=== PATIENT | female | born 2000 | race Caucasian/White ===

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

== ENCOUNTER 2022-05-13 21:58 | Observation (INO) | payer OTHER, SELFPAY ==
[2022-05-13 22:01] VITALS: BP 130/83; PULSE 84; RESP 18; TEMP 37.3; O2SAT 99; BMI 24.8
--- NOTE | 2022-05-13 22:19 | EKG12_ITS ---
Test Reason : DYSRHYTHMIA Blood Pressure : / mmHG Vent. Rate : 074 BPM Atrial Rate : 074 BPM P-R Int : 132 ms QRS Dur : 084 ms QT Int : 382 ms P-R-T Axes : 034 052 039 degrees QTc Int : 424 ms Normal sinus rhythm Normal ECG Confirmed by HUSEYIN CHAHAL, NIALL ([id number]), editor publications KALI FAITH ([id number]) on 05/16/2022 9:38:40 AM Referred By: CARLEE Confirmed By:NIALL FONTANEZ MD
--- NOTE | 2022-05-13 22:22 | EDS_ITS ---
HPI History of Present Illness Chief Complaint: Headache Informant: patient Onset/Context/Timing Onset: Today Narrative Narrative: Patient presents with speech difficulties followed by headache. She is a history of frequent migraines. She has never followed up with neurology. This evening she was sitting on the sofa watching TV with her mother when she suddenly developed difficulty speaking. She states it felt as if she knew what she went to say but could not get the words out. She felt like she had trouble controlling her arms and legs on both sides. EMS was called. Per her report when EMS arrived she still had symptoms but they improved in the ambulance. She now feels like her speech is completely back to normal. In the ambulance in route to the hospital she developed a left-sided migraine. [facility] Medical History Migraine Home Medications drospirenone 3 mg-ethinyl estradiol 0.02 mg tablet (MANSI (28)) 1 tab PO DAILY 05/13/22 [History Last Taken Unknown] Allergy/AdvReac Type Severity Reaction Status Date / Time amoxicillin Allergy Hives Verified 05/13/22 22:08 diphenhydramine Allergy Hives Verified 05/13/22 22:08 [From Benadryl] loratadine [From Claritin] Allergy Hives Verified 05/13/22 22:08 Surgical History History of tonsillectomy and adenoidectomy Social History Smoking Status: Current every day smoker tobacco type: e-cigarettes ROS ROS ED Constitutional Constitutional ED: Denies chills or fever(s) Eyes Eyes: Denies change in vision or discharge from eye(s) ENT ENT ED: Denies discharge from eye(s), rhinorrhea or sore throat Cardiovascular Cardiovascular: Denies chest pain or palpitations Respiratory/Chest Respiratory/Chest: Denies cough or dyspnea Gastrointestinal Gastrointestinal: Denies abdominal pain, diarrhea, nausea or vomiting Genitourinary Genitourinary ED: Denies dysuria Musculoskeletal Musculoskeletal: Denies back pain or extremity pain Integumentary Denies Abrasions or rash Neurologic Neurologic: Reports headache(s), weakness and other Details: Speech difficulty Psychiatric Psychiatric: Denies anxiety or depression Endocrine Endocrinology: Denies polydipsia or polyuria Allergic/Immunologic Allergic/Immunologic ED: Denies lip swelling or urticaria EXAM Physical Exam Const Vital Signs: 05/13/22 22:01 Temperature 99.1 F Temperature Source Temporal Pulse Rate 84 Respiratory Rate 18 Blood Pressure 130/83 H Blood Pressure Mean 98 Pulse Ox 99 Oxygen Delivery Method Room Air Positive well nourished and well developed General Appearance ED: well developed HEENT Reports normocephalic and head/scalp atraumatic Eyes PERRL and EOMs intact bilaterally Neck supple Chest Wall inspection of chest normal and palpation of chest normal Resp normal respiratory effort and clear to auscultation bilaterally Cardio regular rate and regular rhythm GI normal to inspection, nondistended, normoactive bowel sounds Palpation: soft Extremity normal to inspection Neuro oriented x3 and no sensory deficits noted Neuro Narrative: NIH equals 0 at the time of my initial exam. Sensorium / Orientation: alert Motor Exam: strength 5/5 throughout Psych mental status grossly normal Skin no rashes or lesions noted MDM MDM MDM Narrative Medical decision making narrative: Lab work obtained along with EKG and CTA of the head and neck. Lab Data Attestation: I reviewed the patient's lab results. Labs: Laboratory Results - last 24 hr 05/13/22 05/13/22 05/13/22 22:25 22:25 22:25 WBC 8.5 RBC 4.78 Hgb 13.9 Hct 41.1 MCV 86.0 MCH 29.1 MCHC 33.8 RDW Std Deviation 36.9 RDW Coeff of Mae 11.7 Plt Count 242 MPV 10.3 Immature Gran % (Auto) 0.100 Neut % (Auto) 52.5 Lymph % (Auto) 37.2 [place] % (Auto) 8.6 Eos % (Auto) 1.2 Baso % (Auto) 0.4 Absolute Neuts (auto) 4.4 Absolute Lymphs (auto) 3.14 Nucleated RBC % 0 Sodium 142 Potassium 3.7 Chloride 108 H Carbon Dioxide 28.0 Anion Gap 6 BUN 10 Creatinine 0.73 Estim Creat Clear Calc 132.93 Est GFR (MDRD) Af Amer 131 Est GFR (MDRD) Non-Af 108 BUN/Creatinine Ratio 13.8 Glucose 106 Calcium 9.1 Serum , Qual NEGATIVE Radiography Diagnostic Testing: Clinical Impression(s) from Imaging Studies Head/Neck CTA 05/13/22 22:27 IMPRESSION: Normal CTA Head and neck with contrast. Electronically Signed: Fredrick Garcia DO at 23:25 EDT , EKG Initial EKG: Attestation: I personally reviewed and interpreted this EKG as follows: Interpretation: Sinus Rhythm (Sinus at 74 with no acute ischemia.) Treatment and Re-Evaluation Narrative: CBC and chemistry studies unremarkable. test negative. CTA of the head and neck reveals no acute findings. Patient was ordered Toradol. On repeat evaluation she still complains of headache. She does have a documented allergy to Benadryl. In light of this she will be given a dose of steroids and Phenergan. I did explain to her that at this time my suspicion is that she has an atypical migraine is causing intermittent speech problems, however out of extreme caution I did recommend observation overnight and MRI to ensure no neurologic cause for her symptoms. Patient does have history of migraines and has never had speech problems like this previously. I will speak with hospitalist regarding observation. Discharge Plan Triage Chief Complaint: Headache Other Complaint: Confusion ED Provider: Sandy Corona Dx/Rx/DC Orders Clinical Impression: Migraine, Difficulty with speech Prescriptions: No Action drospirenone-ethinyl estradiol [MANSI (28)] 3-0.02 mg Tablet 1 tab PO DAILY Primary Care Provider: Jonathan Marshall Referrals: Care Physician,No Primary [Non-Staff] - Disposition Disposition: Acute Care Hospital [facility]
--- NOTE | 2022-05-13 22:27 | CT_ITS ---
STUDY: CTA HEAD AND NECK WITH CONTRAST REASON FOR EXAM: Female, 21 years old. speech difficulty, migraine RADIATION DOSAGE (If Supplied By Facility): CTDIvol = ( 27.55 ) mGy, DLP = ( 1351.81 ) mGycm TECHNIQUE: CT angiography was performed with a multi-detector CT scanner. Data acquisition was obtained from the skull base through the vertex following intravenous administration of IV 100mL Isovue-370. MIP images were reconstructed from the axial data set. Post-processing of the angiographic images was performed, with multiplanar reformation and 3D reconstruction. Individualized dose optimization techniques were used for this CT. COMPARISON: No relevant priors. FINDINGS: Normal bilateral petrous carotid arteries. Normal right cavernous carotid artery with a normal supraclinoid bifurcation. Normal left cavernous carotid artery with a normal supraclinoid bifurcation. Normal right A1 segments of the anterior cerebral artery. Normal left A1 segments of the anterior cerebral artery. Normal intact anterior communicating artery (ACOM). Normal bilateral A2 segments of the anterior cerebral arteries. Normal right M1 and M2 segments of the middle cerebral arteries, with a normal M1 bifurcation. Normal left M1 and M2 segments of the middle cerebral arteries, with a normal M1 bifurcation. Normal right posterior communicating artery (PCOM). Normal left posterior communicating artery (PCOM). Normal bilateral vertebral arteries. Normal basilar artery with a normal basilar bifurcation. The visualized bilateral superior cerebellar (SCA) arteries are normal. Normal bilateral P1, P2 and visualized P3 segments of the posterior cerebral arteries. There is no demonstrated aneurysm of the [place]. There is no demonstrated abnormality of the visualized brain. AORTIC ARCH: Normal visualized aortic arch. Normal origins of the brachiocephalic, left common carotid, and left subclavian arteries. RIGHT CAROTID ARTERIES: Normal right common carotid artery (CCA). Normal right common carotid bulb. Normal origin of the right internal carotid (ICA) artery without a hemodynamically significant stenosis. Normal visualized cervical portion of the right internal carotid artery. Normal origin of the right external carotid artery (ECA). LEFT CAROTID ARTERIES: Normal left common carotid artery (CCA). Normal left common carotid bulb. Normal origin of the left internal carotid (ICA) artery without a hemodynamically significant stenosis. Normal visualized cervical portion of the left internal carotid artery. Normal origin of the left external carotid artery (ECA). VERTEBRAL ARTERIES: There is enhancement within the bilateral vertebral arteries with a small left vertebral artery, and a dominant right vertebral artery. CT/CTA Head AND Neck W/ Contrast IMPRESSION: Normal CTA Head and neck with contrast. Electronically Signed: Fredrick Garcia DO at 23:25 EDT ,
[2022-05-13 22:32] LABS: Absolute Lymphocyte Count 3.14 X10^3/uL (0.83-4.51); Absolute Neutrophil Count 4.4 X10^3/uL (2.0-7.7); Basophil# 0.03 X10^3/uL; Basophil% 0.4 % (0-1); Eosinophils% 1.2 % (0-5); Hematocrit 41.1 % (37-47); Hemoglobin 13.9 g/dL (12.0-15.0); Lymphocyte # 3.14 X10^3/ul (0.83-4.51); Lymphocyte % 37.2 % (19-41); Mean Corp Hgb Conc 33.8 g/dL (32-36); Mean Corpuscular Hgb 29.1 pg (27.0-32.0); Mean Platelet Vol. 10.3 fl (6.2-12.0); Monocyte# 0.73 X10^3/uL; Monocyte% 8.6 % (0-10); NRBC Flagged by Analyzer 0 % (0-5); Neutrophil # 4.44 X10^3/uL (2.7-7.7); Neutrophil % 52.5 % (47-70); Platelet Count 242 K/mm3 (150-450); RBC Distribution Width CV 11.7 % (11.6-14.6); RBC Distribution Width SD 36.9 fl (35.1-43.9); Red Blood Count 4.78 M/mm3 (4.2-5.4); White Blood Count 8.5 K/mm3 (4.4-11.0)
[2022-05-13 22:41] LABS: Internal QC Validated? YES +Cl - CLEAR BKGD; Pregnancy, Serum, hCG Quali. NEGATIVE Negative
[2022-05-13 22:45] LABS: Anion Gap 6 (5-15); BUN 10 mg/dL (7-18); BUN/Creat Ratio 13.8 RATIO (10-20); Calcium,Total 9.1 mg/dL (8.5-10.1); Chloride 108 mmol/L (98-107); Creatinine, Serum 0.73 mg/dL (0.55-1.02); EST Glomerular Filtration Rate 108 mL/min (>60); Est Glom Filt Rate - Afr Amer 131 mL/min (>60); Estimated Creatinine Clearance 132.93 ml/min; Glucose 106 mg/dL (74-106); Potassium 3.7 mmol/L (3.5-5.1); Sodium Level 142 mmol/L (136-145)
[2022-05-13] MEDS: 0.9% Normal Saline 1,000 ML 1000 ML IV (23:46)
[2022-05-13] MEDS: Ketorolac 30 MG/ML Syringe IV (23:47)
[2022-05-14] VITALS (13 sets, daily range): BP systolic 102–128; BP diastolic 50–75; PULSE 62–89; RESP 13–18; TEMP 36.3–36.9; O2SAT 96–100; BMI 23.7
--- NOTE | 2022-05-14 00:14 | HP.PCM.HOS_ITS ---
HPI - General General Date of Admission: 05/14/22 Date of Service: 05/14/22 Chief Complaint: Aphasia HPI Narrative MOISES MALIK, is a 21 F with a significant history of tobacco abuse; and migraine who presents to the emergency department with aphasia that started about 45 minutes before presentation. Per patient's mother who was at the bedside patient was talking gibberish and she had difficulty producing her words. Also patient reports numbness in the fingers of her bilateral hands and in her feet. Also reportedly she was weak in bilateral hands as she could not squeeze paramedics hands. Reportedly patient's had dysmetria with [id number] tests on examination by paramedics. Patient reports improvement in his symptoms but then developed excruciating left sided migraine. Also she has left supraorbital pain. Reportedly had a migraine on presentation is the worst migraine she has ever had. Further, Patient's mother reports that patient's aphasia has improved but from time to time her aphasia returns. Reportedly every month patient has a migraine. There was plan to schedule an appointment to see a neurologist but that was never done. [facility] Medical History Migraine Home Medications drospirenone 3 mg-ethinyl estradiol 0.02 mg tablet (MANSI (28)) 1 tab PO DAILY 05/13/22 [History Last Taken Unknown] Allergy/AdvReac Type Severity Reaction Status Date / Time amoxicillin Allergy Hives Verified 05/13/22 22:08 diphenhydramine Allergy Hives Verified 05/13/22 22:08 [From Benadryl] loratadine [From Claritin] Allergy Hives Verified 05/13/22 22:08 Family History Other Cancer Diabetes Heart disease Surgical History History of tonsillectomy and adenoidectomy Social History Smoking Status: Current every day smoker tobacco type: e-cigarettes ROS ROS Narrative Pertinent positives and pertinent negatives as noted in HPI. All other systems were reviewed and are negative Vital Signs Vital Signs Vital Signs: 05/13/22 22:01 05/14/22 00:01 Temperature 99.1 F Temperature Source Temporal Pulse Rate 84 74 Respiratory Rate 18 13 Blood Pressure 130/83 H 113/74 Blood Pressure Mean 98 87 Pulse Ox 99 96 Oxygen Delivery Method Room Air Room Air Weight Weight: 78.5 kg Body Mass Index (BMI) 24.8 Physical Exam Narrative Physical exam: General: Well-nourished, well-developed. Head: Normocephalic, atraumatic, no tenderness Eyes: Vision is grossly intact. EOMI ENT, no trauma, moist mucous membranes, no rhinorrhea Neck: Nontender, full range of motion. CVS: Regular rate and rhythm. S1-S2 present. No murmur, gallop or rub. Respiratory : clear to auscultation bilaterally, chest wall nontender, no whe ezing Abdomen: Soft, nontender, nondistended, normal bowel sounds, no masses : Deferred Back: Nontender, no CVA tenderness, no midline spinal tenderness. Extremities: Nontender full range of motion, no trauma Skin: Normal color, no trauma, abrasions Neuro: Alert, oriented, cranial nerves II through XII grossly intact. No dysmetria with [id number] test or flores to heel test. Symmetrical weak power in all 4 extremities. Psychiatry: Normal mood. Normal affect. Not depressed. Not anxious. Results Lab / Micro Data Result Diagrams: 05/13/22 22:25 05/13/22 22:25 Labs: Laboratory Results - last 24 hr 05/13/22 22:25: WBC 8.5, RBC 4.78, Hgb 13.9, Hct 41.1, MCV 86.0, MCH 29.1, MCHC 33.8, RDW Std Deviation 36.9, RDW Coeff of Mae 11.7, Plt Count 242, MPV 10.3, Immature Gran % (Auto) 0.100, Neut % (Auto) 52.5, Lymph % (Auto) 37.2, Wolfe % (Auto) 8.6, Eos % (Auto) 1.2, Baso % (Auto) 0.4, Absolute Neuts (auto) 4.4, Absolute Lymphs (auto) 3.14, Nucleated RBC % 0 05/13/22 22:25: Sodium 142, Potassium 3.7, Chloride 108 H, Carbon Dioxide 28.0, Anion Gap 6, BUN 10, Creatinine 0.73, Estim Creat Clear Calc 132.93, Est GFR (MDRD) Af Amer 131, Est GFR (MDRD) Non-Af 108, BUN/Creatinine Ratio 13.8, Glucose 106, Calcium 9.1 05/13/22 22:25: Serum , Qual NEGATIVE Radiology Impression Head/Neck CTA 05/13/22 22:27 IMPRESSION: Normal CTA Head and neck with contrast. Electronically Signed: Fredrick Garcia DO at 23:25 EDT , Assessment & Plan Assessment/Plan (1) Migraine: (2) Difficulty with speech: PLAN: Plan Complex migraine With patient's history of no hypertension, diabetes, hyperlipidemia and patient's age doubt CVA. Will not initiate aspirin or statin at this time Serial NINDS NIH Scale ordered Impression of head CTA by radiology: Normal CTA Head and neck with contrast. Upon my personal head CT image review: I agree with radiologist interpretation Lab work reviewed showed negative . CBC with normal white count. Lipid profile and A1c ordered. Physical therapy, occupational therapy and speech therapy to work with patient. N.p.o. until bedside swallow eval. Permissive hypertension. Control blood pressure with labetalol for systolic blood pressure of more than 220 or diastolic blood pressure of more than 120. MRI of head ordered Toradol ordered. Tobacco abuse: Counseled. DVT prophylaxis: SCDs ordered Charges/Coding Visit Charges OBSV E&M: 82473 Initial observation care L2
[2022-05-14] MEDS: MethylPREDNISolone 125 MG/2 ML Vial IV (00:15)
[2022-05-14] MEDS: proMETHazine 25 MG Tablet PO (00:15)
--- NOTE | 2022-05-14 01:28 | MRI_ITS ---
STUDY: MRI BRAIN WITHOUT CONTRAST REASON FOR EXAM: Female, 21 years old. cva aphasia, coelho, numbness bilat hands and feet TECHNIQUE: Standardized multiplanar fat and water weighted pulse sequences were obtained. COMPARISON: None. FINDINGS: Normal size of the ventricles and extra-axial spaces for the patient''s age. Normal white matter tracts of the supratentorial brain. There is no evidence for recent intracranial ischemia or other cause of cytotoxic edema on diffusion weighted imaging (DWI). There are no demyelinating plagues of the supratentorial brain, brainstem or cerebellum. There are no findings suspicious for multiple sclerosis (MS). Normal T2* images of the brain without demonstrated susceptibility artifact. There is no demonstrated hemosiderin stain. No midline shift or hydrocephalus is present. Normal bilateral basal ganglia. Normal thalami. There is no extra-axial fluid accumulation. Normal flow voids within the major intracranial circulation suggesting patency by spin echo criteria. Normal sella turcica, pituitary gland, infundibular stalk, optic chiasm and hypothalamus. Normal tectal plate and pineal gland. Normal midbrain, manjula and medulla. Normal cerebellum. Normal basal cisterns. Normal bilateral temporal bones. Normal bilateral internal auditory canals. No demonstrated orbital abnormality, within the constraints of a routine brain study. Normal visualized paranasal sinuses. Normal calvarium and skull base. Normal visualized soft tissue structures. Normal visualized upper cervical spine. MRI/Brain without Contrast IMPRESSION: Normal unenhanced MRI of the brain. Electronically Signed: Jt Thapa MD at 11:38 EDT ,
[2022-05-14] MEDS: CLARIFY ORDER 1 EACH NOTE (05:29)
[2022-05-14 06:56] LABS: Cholesterol 185 mg/dL (200); High Density Lipoprotein 84 mg/dL; Triglycerides 39 mg/dL; Very Low Density Lipoprotein 8 mg/dL (5-40)
[2022-05-14 07:33] LABS: Hemoglobin A1c 4.9 % (3.8-5.6)
--- NOTE | 2022-05-14 08:07 | PCM.PN.HOSP ---
Subjective Subjective Still with headache. Atypical from her migraines as it is left sided. Has weakness in hands bilateraly. Objective Data Objective Data Vital Signs: Vital Signs Temp Pulse Resp BP Pulse Ox O2 Del Method 36.5 C L 67 18 107/62 99 Room Air 05/14/22 05:20 05/14/22 06:38 05/14/22 05:20 05/14/22 05:20 05/14/22 05:20 05/14/22 05:20 Oxygen Delivery Method Room Air Weight: 75.07 kg Body Mass Index (BMI) 23.7 Intake & Output: Intake and Output for Last 24 Hours 05/12/22 05/13/22 05/14/22 23:59 23:59 23:59 Intake Total 1150 / 1150 Balance 1150 / 1150 Lab / Micro Data Result Diagrams: 05/13/22 22:25 05/13/22 22:25 Labs: Laboratory Results - last 24 hr 05/13/22 22:25: WBC 8.5, RBC 4.78, Hgb 13.9, Hct 41.1, MCV 86.0, MCH 29.1, MCHC 33.8, RDW Std Deviation 36.9, RDW Coeff of Mae 11.7, Plt Count 242, MPV 10.3, Immature Gran % (Auto) 0.100, Neut % (Auto) 52.5, Lymph % (Auto) 37.2, [place]ter[place] % (Auto) 8.6, Eos % (Auto) 1.2, Baso % (Auto) 0.4, Absolute Neuts (auto) 4.4, Absolute Lymphs (auto) 3.14, Nucleated RBC % 0 05/13/22 22:25: Sodium 142, Potassium 3.7, Chloride 108 H, Carbon Dioxide 28.0, Anion Gap 6, BUN 10, Creatinine 0.73, Estim Creat Clear Calc 132.93, Est GFR (MDRD) Af Amer 131, Est GFR (MDRD) Non-Af 108, BUN/Creatinine Ratio 13.8, Glucose 106, Calcium 9.1 05/13/22 22:25: Serum , Qual NEGATIVE 05/14/22 05:30: Triglycerides 39, Cholesterol 185, LDL Cholesterol 93, VLDL Cholesterol 8, HDL Cholesterol 84 05/14/22 05:30: Hemoglobin A1c 4.9 Radiography Diagnostic Testing: Radiology Impression Head/Neck CTA 05/13/22 22:27 IMPRESSION: Normal CTA Head and neck with contrast. Electronically Signed: Fredrick Garcia DO at 23:25 EDT , Physical Exam Const alert and no apparent distress HEENT oropharynx normal and dentition normal Eyes EOMs intact bilaterally Resp normal respiratory effort, no retractions and no use of accessory muscles Neuro oriented x3, CN's II-XII intact bilaterally and moves all extremities Neuro Narrative: [employer] Worker strength is slightly less particular in her right hand. Altered sensation on right side of face compared to left. Sensation grossly intact throughout. Assessment & Plan Assessment/Plan (1) Migraine: PLAN: Complex migraine With patient's history of no hypertension, diabetes, hyperlipidemia and patient's age doubt CVA. Will not initiate aspirin or statin at this time Serial NINDS NIH Scale ordered Impression of head CTA by radiology: Normal CTA Head and neck with contrast. Lab work reviewed showed negative . CBC with normal white count. Lipid profile and A1c ordered. Physical therapy, occupational therapy and speech therapy to work with patient. N.p.o. until bedside swallow eval. Permissive hypertension. Control blood pressure with labetalol for systolic blood pressure of more than 220 or diastolic blood pressure of more than 120. MRI of head ordered Toradol ordered. Consult SOC (2) Difficulty with speech: PLAN: Plan Tobacco abuse: Counseled. DVT prophylaxis: SCDs ordered Charges/Coding Visit Charges OBSV E&M: 73654 Subsequent observation care L2
[2022-05-14] MEDS: 0.9% Saline Lock 10 ML Syringe IV (11:14)
[2022-05-14] MEDS: Ketorolac 15 MG/ML Vial IV (11:14)
--- NOTE | 2022-05-14 11:26 | TELEMED_ITS ---
[facility] Telemed has confirmed receipt of a request for visit. This document confirms receipt of the order initiating the consult. To find the results of the consultation, please view the patient's reports for the scanned Telemed Consult.
[2022-05-15] VITALS (9 sets, daily range): BP systolic 101–115; BP diastolic 45–69; PULSE 60–89; RESP 14–18; TEMP 36.6–37.1; O2SAT 98–100; BMI 23.7
--- NOTE | 2022-05-15 08:08 | PN.HOSP_ITS ---
Objective Data Objective Data Vital Signs: Vital Signs Temp Pulse Resp BP Pulse Ox O2 Del Method 36.8 C 67 14 108/45 L 100 Room Air 05/15/22 05:06 05/15/22 06:59 05/15/22 05:06 05/15/22 05:06 05/15/22 05:06 05/15/22 07:09 Oxygen Delivery Method Room Air Weight: 75.07 kg Body Mass Index (BMI) 23.7 Intake & Output: Intake and Output for Last 24 Hours 05/13/22 05/14/22 05/15/22 23:59 23:59 23:59 Intake Total 2049 Output Total 0 / 0 Balance 2049 0 / 0 Lab / Micro Data Result Diagrams: 05/13/22 22:25 05/13/22 22:25 Radiography Diagnostic Testing: Radiology Impression Brain MRI 05/14/22 01:28 IMPRESSION: Normal unenhanced MRI of the brain. Electronically Signed: Jt Thapa MD at 11:38 EDT Reading Location ID and State: [facility] / [place] , Service support , Assessment & Plan Assessment/Plan (1) Migraine: PLAN: Complex migraine With patient's history of no hypertension, diabetes, hyperlipidemia and patient's age doubt CVA. Will not initiate aspirin or statin at this time Serial NINDS NIH Scale ordered Impression of head CTA by radiology: Normal CTA Head and neck with contrast. Lab work reviewed showed negative . CBC with normal white count. Lipid profile and A1c ordered. Physical therapy, occupational therapy and speech therapy to work with patient. N.p.o. until bedside swallow eval. Permissive hypertension. Control blood pressure with labetalol for systolic blood pressure of more than 220 or diastolic blood pressure of more than 120. MRI of head negative Toradol ordered. Consult SOC Check MRV (2) Difficulty with speech: PLAN: Secondary to the primary issue. No evidence of stroke. PLAN: Plan Tobacco abuse: Counseled. DVT prophylaxis: SCDs ordered Charges/Coding Visit Charges OBSV E&M: 58943 Subsequent observation care L2
--- NOTE | 2022-05-15 13:00 | MRI_ITS ---
STUDY: EXAMINATION - MRV BRAIN WITHOUT CONTRAST REASON FOR EXAM: Female, 21 years old. Other, DIFFICULTY WITH SPEECH. LEFT-SIDED MIGRAINE HEADACHE. MR BRAIN 05/14/22; CTA HEAD AND NECK 05/13/22 TECHNIQUE: 3D [id number] (TOF) imaging was performed in a andrey MRI scanner. COMPARISON: CTA of the brain dated May 13, 2022. MRI of the brain dated May 14, 2022 FINDINGS: Normal flow within the superior sagittal sinus. Normal flow within the superficial cortical veins. Normal flow within the paired internal cerebral veins, vein of Rogers and straight sinus. There is preferential flow within the right transverse and sigmoid sinuses, however there is demonstrated minimal flow within the left transverse, but normal flow in the sigmoid sinus. This was also demonstrated on the CTA of the brain dated May 13, 2022. True venous sinus thrombosis is not favored, however if this remains a clinical concern a repeat exam with IV gadolinium can be performed which would result in opacification of the veins and reveal if a true thrombosis is present. Normal flow within the bilateral jugular bulbs. MRI/MRV Head Without Contrast IMPRESSION: 1. There is preferential flow within the right transverse and sigmoid sinuses, however there is demonstrated minimal flow within the left transverse, but normal flow in the sigmoid sinus. This was also demonstrated on the CTA of the brain dated May 13, 2022. 2. True venous sinus thrombosis is not favored, however if this remains a clinical concern a repeat exam with IV gadolinium can be performed which would result in opacification of the veins and reveal if a true thrombosis is present. 3. Normal remaining aspects of the exam. Electronically Signed: Jt Thapa MD at 14:31 EDT ,
--- NOTE | 2022-05-15 13:54 | MDS.RN ---
Called SOC to ask status and ETA of neuro consult as we are well outside of the 24 hour window. The representative personal service stated there is no current ETA due to the heavy call volume and they will call as soon as a doctor becomes available.
--- NOTE | 2022-05-15 16:11 | NURSING ---
Spoke with SOC at this time to inquire again about status of consult. After speaking with the dispatcher SOC rep stated that there is still no ETA for consult and requested we push images. I stated that we don't typically have to push images as SOC has access to our EMAR and usually retrieves images. Rep repeated her request for us to push images. Images have been pushed.
--- NOTE | 2022-05-15 18:11 | NURSING ---
this nurse called soc to see when consult might take place since it has been over 30 hours since order was placed. Lady put me on hold then had me take monitor in room for testing and next available will come on after testing per soc.
--- NOTE | 2022-05-15 20:28 | DCINST_ITS ---
Discharge Instructions Diet Discharge Diet: No restrictions Activity Discharge Activity: Return to Normal Activity Return to work on:: 05/16/22 Follow Up Care Please Follow Up With: Rosales Magana MD When: 1-3 DAYS Test Results: Test results from this visit will be discussed in further detail at your follow- up appointment, if applicable. Discharge Plan Admission Admit Date/Time: 05/14/22 00:14 Primary Reason for Your Visit: APHASIA Attending Provider: Bryant Friend Primary Care Provider: Jonathan Marshall Consulting Providers: Marquis Bejarano Discharge Orders/Prescriptions Prescriptions: New Eliquis DVT-PE Treat 30D Start 5 mg (74 tabs) tablets,dose pack 5 mg PO BID 30 Days Qty: 60 0RF Discontinued drospirenone-ethinyl estradiol [MANSI (28)] 3-0.02 mg Tablet 1 tab PO DAILY Referrals / Follow Up: Jonathan Marshall MD [Primary Care Provider] - Care Physician,No Primary [Non-Staff] - Disposition Disposition (needs filled in before D/C Order can be placed): Home, Self Care
--- NOTE | 2022-05-15 20:28 | DS.PCM_ITS ---
Providers Date of Admission: 05/14/22 Date of Discharge: 05/15/22 Primary Care Physician: Dr. Jonathan Marshall MD Reason For Visit: COMPLEX MIGRAINE Diagnosis Discharge Diagnosis (1) Migraine: Status: Acute Code(s): G43.909 - Migraine, unspecified, not intractable, without status migrainosus (2) Difficulty with speech: Status: Acute Code(s): R47.9 - Unspecified speech disturbances Plan Complex migraine With patient's history of no hypertension, diabetes, hyperlipidemia and patient's age doubt CVA. Will not initiate aspirin or statin at this time Serial NINDS NIH Scale ordered Impression of head CTA by radiology: Normal CTA Head and neck with contrast. Upon my personal head CT image review: I agree with radiologist interpretation Lab work reviewed showed negative . CBC with normal white count. Lipid profile and A1c ordered. Physical therapy, occupational therapy and speech therapy to work with patient. N.p.o. until bedside swallow eval. Permissive hypertension. Control blood pressure with labetalol for systolic blood pressure of more than 220 or diastolic blood pressure of more than 120. MRI of head ordered Toradol ordered. Tobacco abuse: Counseled. DVT prophylaxis: SCDs ordered Medications at Discharge Home Medications Eliquis DVT-PE Treat 30D Start (apixaban) 5 mg PO BID Venous sinus thrombosis 30 days #60 tabs 05/15/22 Hospital Course Summary of Care Provided Minutes Spent on Discharge: 35 Hospital Course: Assessment/Plan (1) Migraine: PLAN: Complex migraine With patient's history of no hypertension, diabetes, hyperlipidemia and patient's age doubt CVA.? Will not initiate aspirin or statin at this time Serial NINDS NIH Scale ordered Impression of head CTA by radiology:?Normal CTA Head and neck with contrast. Lab work reviewed showed negative .? CBC with normal white count. A1C returned as 4.9 Lipid profile showed TRI 39; cholesterol 185; LDL cholesterol 93; VLDL cholesterol 8; HDL cholesterol 84. Physical therapy, occupational therapy and speech therapy to work with patient.? N.p.o. until bedside swallow eval.Passed wallow eval Permissive hypertension.? Control blood pressure with labetalol for systolic blood pressure of more than 220 or diastolic blood pressure of more than 120. MRI of head negative Toradol ordered. Consult SOC; SOC MRI head normal MRV brain: 1.? There is preferential flow within the right transverse and sigmoid sinuses, however there is demonstrated minimal flow within the left transverse, but normal flow in the sigmoid sinus.? This was also demonstrated on the CTA of the brain dated May 13, 2022. 2.? True venous sinus thrombosis is not favored, however if this remains a clinical concern a repeat exam with IV gadolinium can be performed which would result in opacification of the veins and reveal if a true thrombosis is present. 3.? Normal remaining aspects of the exam. SOC Neurologist recommended CTvenogram of brain and EEG. CT venogram was not immediately available. Patient and mother requested that patient be discharged home and to follow-up with neurology and PCP. Patient's mother was adamant patient was seen at PCP about next day. Patient was advised to stop taking oral contraceptive pills and stopped smoking CT venogram was done and it returns negative. Patient was prescribed Eliquis. (2) Difficulty with speech: PLAN: Secondary to the primary issue.? No evidence of stroke. Resolved (3) Tobacco abuse: Counseled. Physical Exam Narrative Physical exam: General: Well-nourished, well-developed. Head: Normocephalic, atraumatic, no tenderness Eyes: Vision is grossly intact. EOMI ENT, no trauma, moist mucous membranes, no rhinorrhea Neck: Nontender, full range of motion, no spinal tenderness, deformities, step- off CVS: Regular rate and rhythm. S1-S2 present. No murmur, gallop or rub. Respiratory : clear to auscultation bilaterally, chest wall nontender, no wheezing Abdomen: Soft, nontender, nondistended, normal bowel sounds, no masses : Deferred Back: Nontender, no CVA tenderness, no midline spinal tenderness, deformities, step-offs Extremities: Nontender full range of motion, no trauma Skin: Normal color, no trauma, abrasions Neuro: Alert, oriented, cranial nerves II through XII grossly intact. Psychiatry: Normal mood. Normal affect. Not depressed. Not anxious. Weight / BMI Weight Weight: 75.07 kg Body Mass Index (BMI) 23.7 ABG / Lab / Microbiology Data Result Diagrams: 05/13/22 22:25 05/13/22 22:25 Radiography Diagnostic Testing: Radiology Impression Brain MRI 05/15/22 13:00 IMPRESSION: 1. There is preferential flow within the right transverse and sigmoid sinuses, however there is demonstrated minimal flow within the left transverse, but normal flow in the sigmoid sinus. This was also demonstrated on the CTA of the brain dated May 13, 2022. 2. True venous sinus thrombosis is not favored, however if this remains a clinical concern a repeat exam with IV gadolinium can be performed which would result in opacification of the veins and reveal if a true thrombosis is present. 3. Normal remaining aspects of the exam. Electronically Signed: Jt Thapa MD at 14:31 EDT Reading Location ID and State: [facility] / [place] , Service support , D/C Instructions Discharge Diet: No restrictions Return to work on: 05/20/22 May shower in (days): 0 May resume sexual activity in: No Restrictions Weight Bearing Status: Full weight bearing Call your doctor if you observe: Fever of 101 or Higher, Numbness or Tingling, Shortness of breath and Dizziness Please Follow Up With: Jonathan Marshall MD When: 1-3 days Meaningful Use Info Meaningful Use Diagnoses (Choose all that apply): None applicable Discharge Plan Admission Admit Date/Time: 05/14/22 00:14 Primary Reason for Your Visit: APHASIA Attending Provider: Bryant Friend Primary Care Provider: Jonathan Marshall Consulting Providers: Marquis Bejarano Discharge Orders/Prescriptions Prescriptions: New Eliquis DVT-PE Treat 30D Start 5 mg (74 tabs) tablets,dose pack 5 mg PO BID 30 Days Qty: 60 0RF Discontinued drospirenone-ethinyl estradiol [MANSI (28)] 3-0.02 mg Tablet 1 tab PO DAILY Referrals / Follow Up: Jonathan Marshall MD [Primary Care Provider] - Care Physician,No Primary [Non-Staff] - Disposition Disposition (needs filled in before D/C Order can be placed): Home, Self Care Charges/Coding Visit Charges Inpatient E&M: 78494 Disch Hosp
--- NOTE | 2022-05-16 07:34 | NURSING ---
at shift change 05/15 no neurologist on soc yet. certified legal secretary specialist did beam n at 1927 and verify patient
--- NOTE | 2022-05-16 12:56 | CASEMGMT ---
Call from pt's mother requesting Eliquis coupon cards. She states they were sent home with some yesterday but she lost them. Cards placed at [facility] main entrance for pt/mom to picker and sorter load and unload. Rani DIXON CM
== END 2022-05-15 21:40 | disposition home or self-care (01) ==
LOC: ED 05-14 00:04 → PCU 05-14 00:41
PROVIDERS: Admitting Provider Hospitalist; Emergency Provider Emergency Medicine; PCP Family Medicine
DX: G43.909 Migraine, unspecified, not intractable, without status migrainosus (principal); R47.01 Aphasia; R41.0 Disorientation, unspecified; R47.9 Unspecified speech disturbances; R53.1 Weakness; F17.290 Nicotine dependence, other tobacco product, uncomplicated
CPT/HCPCS: 36415; 70496; 70498; 70544; 70551; 80048; 80061; 83036; 84703; 85025; 92610; 93005; 96374; 96375; 96376; 99218; 99285; 99406; J7030; Q9967; A4216; G0378

== ENCOUNTER → 2023-01-30 | Outpatient (CLI) | payer SELFPAY ==
--- NOTE | 2023-01-30 16:19 | US_ITS ---
STUDY: FIRST TRIMESTER OBSTETRICAL ULTRASOUND REASON FOR EXAM: Female, 22 years old POSITIVE TEST LMP: 12/05/2022 TECHNIQUE: Transabdominal TECHNICAL QUALITY: Adequate. PRIOR ULTRASOUND: None. FINDINGS: There is visualization of a single gestational sac in a normal intrauterine position. The mean sac diameter (MSD) measures 2.7 cm, indicating an estimated gestational age (EGA) of 7 weeks, 5 days. The gestational sac shape is within normal limits. There is a visualized yolk sac. The yolk sac measures 4.4 mm. The placenta is non-visualized. There is visualization of a live embryo. The crown-rump length (CRL) measures 1.4 cm, indicating an estimated gestational age (EGA) of 7 weeks, 5 days. There is demonstrated cardiac activity with a heart rate of 150 bpm. The estimated gestation age (EGA) by LMP is 8 weeks, 0 days. The estimated date of delivery (FLORENTINO) by LMP is 09/11/2023. The estimated gestation age (EGA) by US is 7 weeks, 4 days. The estimated date of delivery (FLORENTINO) by US is 09/13/2023. The uterus measures 8.7 x 7.0 x 5.5 cm. There is no demonstrated uterine fibroid. The cervix is closed. The right ovary measures 2.9 x 1.9 x 1.3 cm. There is no right ovarian cyst. There is no visualized right adnexal mass or complex lesion. The left ovary measures 3.3 x 3.4 x 2.8 cm. There is a 2.7 cm cyst. There is no visualized left adnexal mass or complex lesion. There is no fluid in the cul de sac. US/Init OB < 14Wks US IMPRESSION: Normal single live intrauterine gestation with ultrasound EGA of 7 weeks 4 days. Electronically Signed: Bryce Alaniz MD at 19:38 EDT ,
== END | disposition home or self-care (01) ==
PROVIDERS: PCP Family Medicine; Referring Provider Nurse Practitioner Women's Health; Visit Provider Nurse Practitioner Women's Health
DX: Z32.01 Encounter for pregnancy test, result positive (principal)
CPT/HCPCS: 76801

== ENCOUNTER → 2023-02-06 | Outpatient (CLI) | payer OTHER, SELFPAY ==
[2023-02-09 20:07] LABS: Chlamydia By Nucleic Acid AMP Negative (Negative); Gonococcus By Nucleic Acid AMP Negative (Negative)
== END | disposition home or self-care (01) ==
LOC: LAB 10:46
PROVIDERS: PCP Family Medicine; Referring Provider Obstetrics & Gynecology; Visit Provider Obstetrics & Gynecology
DX: Z34.90 Encounter for supervision of normal pregnancy, unspecified, unspecified trimester (principal)
CPT/HCPCS: 87086; 87088; 87491; 87591

== ENCOUNTER → 2023-02-13 | Outpatient (CLI) | payer BC, SELFPAY ==
[2023-02-13 13:32] LABS: NATERA MAILED SPECIMEN
[2023-02-13 13:32] LABS: Absolute Lymphocyte Count 1.96 X10^3/uL (0.83-4.51); Absolute Neutrophil Count 7.7 X10^3/uL (2.0-7.7); Basophil# 0.04 X10^3/uL; Basophil% 0.4 % (0-1); Eosinophil# 0.08 X10^3/uL; Eosinophils% 0.8 % (0-5); Hematocrit 43.4 % (37-47); Hemoglobin 14.7 g/dL (12.0-15.0); Lymphocyte # 1.96 X10^3/ul (0.83-4.51); Lymphocyte % 18.7 % (19-41); Mean Corp Hgb Conc 33.9 g/dL (32-36); Mean Corpuscular Hgb 30.1 pg (27.0-32.0); Mean Corpuscular Volume 88.9 fL (81-99); Mean Platelet Vol. 10.3 fl (6.2-12.0); Monocyte# 0.65 X10^3/uL; Monocyte% 6.2 % (0-10); NRBC Flagged by Analyzer 0 % (0-5); Neutrophil # 7.73 X10^3/uL (2.7-7.7); Neutrophil % 73.5 % (47-70); Platelet Count 254 K/mm3 (150-450); RBC Distribution Width CV 12.3 % (11.6-14.6); Red Blood Count 4.88 M/mm3 (4.2-5.4); White Blood Count 10.5 K/mm3 (4.4-11.0)
[2023-02-13 15:03] LABS: HIV - WCH Non-Reactive (Nonreactive); Hepatitis B Surface Antigen Non-Reactive (Nonreactive); Hepatitis C Antibody Non-Reactive (Nonreactive); Rubella IgG Reactive (Nonreactive); Syphilis Antibodies Non-reactive
== END | disposition home or self-care (01) ==
PROVIDERS: PCP Family Medicine; Referring Provider Obstetrics & Gynecology; Visit Provider Obstetrics & Gynecology
DX: Z34.81 Encounter for supervision of other normal pregnancy, first trimester (principal)
CPT/HCPCS: 36415; 85025; 86703; 86762; 86780; 86803; 86850; 86900; 86901; 87340

== ENCOUNTER → 2023-04-17 | Outpatient (CLI) | payer BC, SELFPAY ==
--- NOTE | 2023-04-17 09:56 | US_ITS ---
STUDY: SECOND AND THIRD TRIMESTER OBSTETRICAL ULTRASOUND REASON FOR EXAM: Female, 22 years old OB Anatomy with cervical length LMP: December 05, 2022. TECHNIQUE: Transabdominal and Transvaginal TECHNICAL QUALITY: Adequate. PRIOR ULTRASOUND: Comparison is made with prior study dated January 30, 2023. FINDINGS: There is a single intrauterine fetus. The fetus is in a cephalic presentation. There is demonstrated cardiac activity with a heart rate of 139 bpm. There is a normal amniotic fluid volume. The largest amniotic fluid pocket measures 4.3 cm. The amniotic fluid index (MAMI) is within normal limits. The placenta is anterior in location and is not low lying. There are Grade 0 placental changes. The cervix measures 3.5 cm in length. The bilateral adnexal regions are normal. BIOMETRY: BPD: 4.38 cm: 19 weeks, 2 days HC: 15.62 cm: 18 weeks, 4 days AC: 13.73 cm: 19 weeks, 1 days FL: 2.88 cm: 18 weeks, 6 days CI: 81% FL/BPD: 66% FL/HC: FL/AC: 21% HC/AC: 1.14 age by current US: 18 weeks, 5 days. FLORENTINO by current US: September 13, 2023. Estimated weight: 271 grams, +/- 41 grams, 40 %. age by prior US: 18 weeks, 5 days. FLORENTINO by prior US: September 13, 2023. Age by LMP: 19 weeks, 0 days. FLORENTINO by LMP: September 11, 2023. ANATOMY: Gender: Female Cranium: Normal lateral ventricles. Normal choroid plexus. Normal cerebellum. Normal cisterna magna. Normal face, nose and lips. Chest: Normal 4-chamber heart. Abdomen/Pelvis: Normal diaphragm. Normal stomach. Normal abdominal wall. Normal cord insertion. Normal 3 vessel cord. Normal kidneys. Normal bladder. Spine: Normal cervical spine. Normal thoracic spine. Normal lumbar spine. Normal sacrum. Extremities: Normal bilateral upper extremities. Normal bilateral lower extremities. US/OB Anatomy w/ Transvaginal IMPRESSION: Single live intrauterine gestation with a mean gestational age of 18 weeks and 5 days. There has been good growth since prior study. Electronically Signed: Sammy Cuenca MD at 13:38 EDT ,
== END | disposition home or self-care (01) ==
LOC: OPUS 09:52
PROVIDERS: PCP Family Medicine; Referring Provider Obstetrics & Gynecology; Visit Provider Obstetrics & Gynecology
DX: O09.92 Supervision of high risk pregnancy, unspecified, second trimester (principal); Z3A.18 18 weeks gestation of pregnancy
CPT/HCPCS: 76805; 76817

== ENCOUNTER → 2023-06-12 | Outpatient (CLI) | payer BC, SELFPAY ==
[2023-06-12 13:06] LABS: Absolute Lymphocyte Count 2.14 X10^3/uL (0.83-4.51); Absolute Neutrophil Count 10.6 X10^3/uL (2.0-7.7); Basophil# 0.05 X10^3/uL; Basophil% 0.4 % (0-1); Eosinophil# 0.13 X10^3/uL; Eosinophils% 0.9 % (0-5); Hematocrit 38.5 % (37-47); Hemoglobin 12.4 g/dL (12.0-15.0); Lymphocyte # 2.14 X10^3/ul (0.83-4.51); Lymphocyte % 15.5 % (19-41); Mean Corp Hgb Conc 32.2 g/dL (32-36); Mean Platelet Vol. 10.5 fl (6.2-12.0); Monocyte# 0.72 X10^3/uL; Monocyte% 5.2 % (0-10); NRBC Flagged by Analyzer 0 % (0-5); Neutrophil # 10.59 X10^3/uL (2.7-7.7); Neutrophil % 76.8 % (47-70); Platelet Count 230 K/mm3 (150-450); RBC Distribution Width CV 12.4 % (11.6-14.6); Red Blood Count 4.14 M/mm3 (4.2-5.4); White Blood Count 13.8 K/mm3 (4.4-11.0)
[2023-06-12 13:26] LABS: Glucose Challenge Gest 1H 50g 102 mg/dL (70-140)
[2023-06-12 13:58] LABS: HIV - WCH Non-Reactive (Nonreactive); Syphilis Antibodies Non-reactive
== END | disposition home or self-care (01) ==
PROVIDERS: PCP Family Medicine; Referring Provider Registered Nurse; Visit Provider Registered Nurse
DX: O09.90 Supervision of high risk pregnancy, unspecified, unspecified trimester (principal); Z3A.00 Weeks of gestation of pregnancy not specified
CPT/HCPCS: 36415; 82950; 85025; 86703; 86780

== ENCOUNTER → 2023-07-17 | Outpatient (CLI) | payer BC, SELFPAY | END | disposition home or self-care (01) | LOC: LABSPEC 17:07 | PROVIDERS: PCP Family Medicine; Referring Provider Registered Nurse; Visit Provider Registered Nurse | DX: N89.8 Other specified noninflammatory disorders of vagina (principal) | CPT/HCPCS: 87070; 87205 ==

== ENCOUNTER → 2023-08-14 | Outpatient (CLI) | payer BC, SELFPAY | END | disposition home or self-care (01) | LOC: LABSPEC 17:00 | PROVIDERS: PCP Family Medicine; Referring Provider Obstetrics & Gynecology; Visit Provider Obstetrics & Gynecology | DX: O09.90 Supervision of high risk pregnancy, unspecified, unspecified trimester (principal); Z3A.00 Weeks of gestation of pregnancy not specified | CPT/HCPCS: 87081 ==

== ENCOUNTER 2023-09-05 20:43 | Inpatient (IN) | payer BC, SELFPAY ==
[2023-09-05] VITALS (19 sets, daily range): BP systolic 109–144; BP diastolic 57–96; PULSE 81–105; TEMP 37.1–37.6; O2SAT 97–100; BMI 31.2
--- OUTSIDE RECORDS SUMMARY | 2023-09-05 01:20 | XMS RPT_ITS | CCD ---
Author Name Unknown Address [address] [place] [address] Organization [facility] Care Team Providers Care Security Officer Name Role Phone Breann MOORE, [place] er CRISTINO CRAIN Attending Dilshad lable [facility] Unavai lable BRE[facility] Primary Care Unavarosana blakelyle SHEEBA MORGAN Attending SHEEBA Mills Referring Unavailable BREANN, [facility] Primary Care Unavai lable BREANN, [facility] Referring Unavai lable BREANN, [facility] Unavai lable BREANN, [facility] Referring Unavai lable BRE[facility] Primary Care SHEEBA Byers Attending SHEEBA Mills Referring Unavailable BREANN, [facility] Primary Care UnaANALY Cassidy Referring Unavailable BRE[facility] Primary Care Unavai lable JUSTSHEEBA Referring Unavailable Breann DO, [facility] er Allergies Allergy Classification Reported Allergen(s) Allergy Type Date of Onset Reaction(s) Facility (10 sources) Amoxicillin; Translations: [AMOXICILLIN] Drug Allergy 11-07-2016 Rash, Swelling [facility] Work Phone: (10 sources) diphenhydrAMINE; Translations: [DIPHENHYDRAMINE HCL] Drug Allergy 10-23-2009 [facility] (10 sources) Loratadine; Translations: [LORATADINE] Drug Allergy 10-23-2009 [facility] Medications Completed/Discontinued Medications Medication Drug Class(es) Dates Sig (Normalized) Sig (Original) adapalene 0.001 mg/mg / benzoyl peroxide 0.025 mg/mg topical gel (5 sources) Retinoid Start: 08-09-2018 End: 07-04-2022 adapalene-benzoyl peroxide (EPIDUO) 0.1-2.5 % glwp Apply 1 application to affected area once daily. 1 Bottle 2 08/09/2018 07/04/2022 Discontinued Problems Problem Classification Problem Date Documented Da te Episodic/Chronic Epilepsy; convulsions (4 sources) Seizure disorder; Translations: [Epilepsy, unspecified, not intractable, without status epilepticus] Onset: 06-03-2022 Chronic Headache; including migraine (1 source) Migraine with aura; Translations: [Migraine with aura, not intractable, without status migrainosus] Chronic Other nervous system disorders (1 source) Cerebral venous sinus thrombosis; Translations: [Intracranial and intraspinal phlebitis and thrombophlebitis] Episodic Other nervous system disorders (1 source) Intracranial and intraspinal phlebitis and thrombophlebitis; Translations: [Cerebral venous sinus thrombosis] Onset: 08-18-2022 Episodic Transient cerebral ischemia (4 sources) Transient cerebral ischemia; Translations: [Transient cerebral ischemic attack, unspecified] Onset: 06-03-2022 Chronic Results Test Name Value Interpretation Reference Range Facil ity Vital Signs Date Time Vital Sign Value Performing Clinician Jj aguilar 07-04-2022 13:10-0400 Body height 175.3 cm Sheeba Morgan MD Work Phone: [facility] 07-04-2022 13:10-0400 Body weight 72.58 kg Sheeba Morgan MD Work Phone: [facility] 07-04-2022 13:10-0400 Diastolic blood pressure 71 mm[Hg] Sheeba Morgan MD Work Phone: [facility] 07-04-2022 13:10-0400 Heart rate 86 /min Sheeba Morgan MD Work Phone: [facility] 07-04-2022 13:10-0400 SaO2% (BldA) [Mass fraction] 98 % Sheeba Morgan MD Work Phone: [facility] 07-04-2022 13:10-0400 Systolic blood pressure 112 mm[Hg] Sheeba Morgan MD Work Phone: [facility] 06-03-2022 11:26-0400 Body height 172.7 cm Cristino Crain DO Work Phone: [facility] 06-03-2022 11:26-0400 Body weight 74.39 kg Cristino Crain DO Work Phone: [facility] 06-03-2022 11:26-0400 Diastolic blood pressure 66 mm[Hg] Cristino Breann DO Work Phone: [facility] 06-03-2022 11:26-0400 Heart rate 86 /min Cristino Crain DO Work Phone: [facility] 06-03-2022 11:26-0400 SaO2% (BldA) [Mass fraction] 97 % Cristino Crain DO Work Phone: [facility] 06-03-2022 11:26-0400 Systolic blood pressure 100 mm[Hg] Cristino Crain DO Work Phone: [facility] 01-31-2020 00:23-0400 Body surface area Derived from formula [facility] [place] Encounters Encounter Date Encounter Type Care Provider Facility Start: 08-29-2022 End: 08-29-2022 ambulatory CRISTINO CRAIN Facility:[facility] Procedures Date Procedure Procedure Detail Performing Clinician Start: 06-25-2022 Ct angiography head w/contrast/noncontrast Tulsazaina Crain DO Work Phone: Plan of Treatment Date Care Activity Detail Author Start: 04-13-2024 Urine microalbumin profile DTAP,TDAP,TD (7 - Td or Tdap) [facility] Start: 08-31-2022 DEPRESSION ASSESSMENT DEPRESSION ASSESSMENT [facility] Start: 05-01-2022 Influenza vaccination INFLUENZA (#1) [facility] Start: 08-31-2021 DEPRESSION ASSESSMENT DEPRESSION ASSESSMENT [facility] Start: 07-19-2021 COVID-19 VACCINE (3 - Booster for Moderna series) COVID-19 VACCINE (3 - Booster for Moderna series) [facility] Start: 12-06-2019 CHLAMYDIA SCREENING (18-24) CHLAMYDIA SCREENING (18-24) [facility] Start: 12-06-2019 GC (GONORRHEA) SCREENING (18-24) GC (GONORRHEA) SCREENING (18-24) [facility] Start: 12-06-2019 HEPATITIS C SCREENING HEPATITIS C SCREENING [facility] Start: 12-06-2019 HIV SCREENING HIV SCREENING [facility] Start: 12-06-2015 PEDS TO ADULT TRANSITION ANNUAL ASSESSMENT PEDS TO ADULT TRANSITION ANNUAL ASSESSMENT [facility] Start: 2013 PEDS TO ADULT TRANSITION INITIAL DISCUSSION PEDS TO ADULT TRANSITION INITIAL DISCUSSION [facility] Start: 12-06-2011 MENINGOCOCCAL B: Consider based on risk (1 of 2 - Risk Bexsero 2-dose series) MENINGOCOCCAL B: Consider based on risk (1 of 2 - Risk Bexsero 2-dose series) [facility] Start: 06-06-2002 COVID-19 VACCINE (#1) COVID-19 VACCINE (#1) [facility] End: 07-03-2023 CTA HEAD W IVCON CTA HEAD W IVCON Radiology Routine TIA (transient ischemic attack) Seizure disorder (HCC) 1 Occurrences starting 06/03/2022 until 07/03/2023 [facility] Work Phone: Immunizations Immunization Date Immunization Notes Care Provider Rachelle silva 09-25-2015 Human Papillomavirus 9-valent vaccine [place] [facility] DO Work Phone: [facility] 09-25-2015 influenza, live, intranasal, quadrivalent [facility] 04-16-2015 human papilloma viru s vaccine, quadrivalent [facility] 07-20-2014 influenza, live, intranasal, quadrivalent Cristino Breann DO Work Phone: [facility] 04-13-2014 meningococcal polysaccharide (groups A, C, Y and W-135) diphtheria toxoid conjugate vaccine (MCV4P) [facility] 04-13-2014 tetanus toxoid, redu binh diphtheria toxoid, and acellular pertussis vaccine, adsorbed [facility] 06-11-2013 influenza virus vacc ine, live, attenuated, for intranasal use Cirstino Breann DO Work Phone: [facility] Work Phone: 07-08-2012 influenza virus vacc ine, live, attenuated, for intranasal use [place] Bre[place] DO Work Phone: [facility] 05-31-2011 influenza virus vacc ine, live, attenuated, for intranasal use [place] Bre[place] DO Work Phone: [facility] Work Phone: 06-02-2009 influenza virus vacc ine, live, attenuated, for intranasal use Cristino Breann DO Work Phone: [facility] Work Phone: 08-11-2007 influenza virus vacc ine, live, attenuated, for intranasal use [place] [facility] DO Work Phone: [facility] Work Phone: 10-20-2006 diphtheria, tetanus toxoids and acellular pertussis vaccine Cristino Breann DO Work Phone: [facility] Work Phone: 10-20-2006 measles, mumps, rube lla, and varicella virus vaccine [place] Bre[place] DO Work Phone: [facility] Work Phone: 10-20-2006 poliovirus vaccine, inactivated [place] Bre[place] DO Work Phone: [facility] Work Phone: 07-17-2003 influenza virus vacc ine, unspecified formulation [place] Bre[place] DO Work Phone: [facility] Work Phone: 06-22-2003 influenza virus vacc ine, unspecified formulation Cristino Breann DO Work Phone: [facility] Work Phone: 03-08-2003 diphtheria, tetanus toxoids and acellular pertussis vaccine Cristino Breann DO Work Phone: [facility] Work Phone: 03-08-2003 pneumococcal conjuga te vaccine, 7 valent [facility] Work Phone: 03-08-2003 varicella virus vaccine Free [facility] DO Work Phone: [facility] Work Phone: 12-07-2002 haemophilus influenz ae type b vaccine, HbOC conjugate [facility] DO Work Phone: [facility] Work Phone: 12-07-2002 measles, mumps and rubella virus vaccine [facility] Work [facility]: [facility] Work Phone: 09-07-2002 hepatitis B vaccine, pediatric or pediatric/adolescent dosage [facility] DO Work Phone: [facility] Work Phone: 09-07-2002 pneumococcal conjuga te vaccine, 7 valent [facility] Work Phone: 06-06-2002 diphtheria, tetanus toxoids and acellular pertussis vaccine [facility] Work [facility]: [facility] Work Phone: 06-06-2002 haemophilus influenz ae type b vaccine, HbOC conjugate [facility] DO Work Phone: [facility] Work Phone: 06-06-2002 pneumococcal conjuga te vaccine, 7 valent [facility] Work [facility]: [facility] Work Phone: 06-06-2002 poliovirus vaccine, inactivated [facility] DO Work Phone: [facility] Work Phone: 04-06-2002 diphtheria, tetanus toxoids and acellular pertussis vaccine [facility] Work [facility]: [facility] Work Phone: 04-06-2002 haemophilus influenz ae type b vaccine, HbOC conjugate [facility] Work Phone: 04-06-2002 poliovirus vaccine, inactivated Cristino Breann DO Work Phone: [facility] Work Phone: 02-09-2002 diphtheria, tetanus toxoids and acellular pertussis vaccine [facility] Work Phone: [facility] Work Phone: 02-09-2002 haemophilus influenz ae type b vaccine, HbOC conjugate [facility] Work Phone: [facility] Work Phone: 02-09-2002 pneumococcal conjuga te vaccine, 7 valent [facility] DO Work Phone: [facility] Work Phone: 02-09-2002 poliovirus vaccine, inactivated Cristino Breann DO Work Phone: [facility] Work Phone: 01-06-2002 hepatitis B vaccine, pediatric or pediatric/adolescent dosage [place] [facility] DO Work Phone: [facility] Work Phone: 2001 hepatitis B vaccine, pediatric or pediatric/adolescent dosage [place] Bre[place] DO Work Phone: [facility] Work Phone: Payers Date Payer Category Payer [employer] [id number] 2021 [employer] [id number] 2021 Unknown [id number] Social History Date Type Detail Facility Start: 12-03-2017 End: 07-04-2022 Tobacco smoking status AKIS Never smoked tobacco [facility] Work Phone: History of tobacco use Passive smoker [facility] Work Phone: Start: 12-03-2017 Tobacco use and exposure User of smokeless tobacco [facility] Work Phone: History of tobacco use [facility] Work Phone: Start: 09-29-2019 Alcohol intake Not Asked [facility] Start: 2001 Sex Assigned At Not on file C [facility] Start: 05-24-2022 End: 06-05-2022 Exposure to SARS-CoV-2 (event) Not sure [facility] Start: 07-04-2022 Tobacco use and exposure Smokeless tobacco non-user [facility] Start: 07-04-2022 End: 08-18-2022 Alcohol intake Ex-drinker (finding) [facility] Clinical Notes 06-03-2022 to 08-29-2022 Sheeba Morgan MD - 08/29/2022 2:57 PM ESTSheeba Morgan MD - 07/04/2022 3:05 PM EDTTelephone Encounter - Karissa Draper LPN - 07/03/2022 10:16 AM EDTAngela Vale RN - 06/25/2022 11:00 AM EDT Note Date & Type Note Facility 08-29-2022 Note HNO ID: [id number] Author: Sheeba Morgan MD Service: ? Author Type: Physician Type: Progress Notes Filed: 08/29/2022 3:11 PM Note Text: [facility] Follow Up / Established Virtual Visit I received consent from the patient to perform the visit as a virtual encounter. Individuals who were included in, or assisted with the encounter were: Sheeba Morgan MD Primary Care Provider: Cristino Crain DO Chief Complaint: follow up Chart Review: Patient first seen in July for an episode in May with sudden onset word-finding difficulties, expressive aphasia. An MR head without contrast venogram showed possible left transverse sinus thrombosis due to minimal flow. Subsequently MRI was done but for unclear reasons was done without contrast venogram. MRI was then repeated with contrast. 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 I spoke with the patient on August 18 via [employer] and told her to stop taking her Eliquis. HPI: Susie has been doing well. She does not report any further episodes. 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 It is more likely that the episode was a complex migraine. We discussed that while there is a theoretical increased risk of strokes in patients with migraine with aura, the fact that she is only had 1 occurrence of this headache means that her risk is likely minimal when weighed against the thrombosis risk of . There is no problem list on file for this patient. PAST MEDICAL HISTORY Diagnosis Date NEGATIVE MEDICAL HISTORY Medications: Reviewed Current Outpatient Medications Medication Instructions apixaban (ELIQUIS) 5 mg, ORAL, 2 TIMES DAILY iv contrast (will be provided with radiology test) MRV Brain Inject, intravenously, once for 1 dose. No IV access, insert saline lock prior to the beginning of sedation, infusion, injection of imaging exam. Discontinue saline lock post exam. If Pt. has a central line or IVAD, may access for administration according to line specific nursing protocol. Once exam is complete flush line and de-access according to line specific nursing protocol in the MR contrast administration guidelines link. iv contrast (will be provided with radiology test) MRV Brain Inject, intravenously, once for 1 dose. No IV access, insert saline lock prior to the beginning of sedation, infusion, injection of imaging exam. Discontinue saline lock post exam. If Pt. has a central line or IVAD, may access for administration according to line specific nursing protocol. Once exam is complete flush line and de-access according to line specific nursing protocol in the MR contrast administration guidelines link. THERAPEUTIC MULTIVITAMIN TAB Take one(1) tablet daily. ALLERGIES No Known Allergies Family History Problem Relation Age of Onset other (history unknown) Mother adopted PAST SURGICAL HISTORY Procedure Laterality Date NONE Social Hx: Social History Tobacco Use Smoking status: Never Passive exposure: Yes Smokeless tobacco: Never Vaping Use Vaping Use: Some days Substances: Nicotine Devices: Disposable Substance Use Topics Alcohol use: Not Currently EXAMINATION Vitals deferred, virtual visit Fluent speech. No facial asymmetry. Labs: No results found for: HB, HCT, WBC, PLT 4.7 (09/29/2019) Radiology: MRV BRAIN WO/W IVCON Narrative: * * *Final Report* * * DATE OF EXAM: Aug 18 2022 9:39AM [facility] 0336 - MRV BRAIN WO/W IVCON / PROCEDURE REASON: Cerebral venous sinus thrombosis * * * * Physician Interpretation * * * * EXAMINATION: MRV BRAIN WO/W IVCON HISTORY: Cerebral venous sinus thrombosis TECHNIQUE: Intracranial 2-D [id number] and post gadolinium 3-D MR venography. Contrast: IV administration of 15 ml of Dotarem COMPARISON: Brain MRI 07/14/2022, head CTA 06/25/2022 RESULT: The superior sagittal, straight, transverse and sigmoid sinuses are patent without filling defect. 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 The internal cerebral veins and vein of Rogers are patent. The superior ophthalmic veins are not enlarged. The cavernous sinuses appear grossly symmetric. Single sagittal precontrast T1 acquisition through the brain is not revealing of any acute intracranial process including mass effect or obvious large space-occupying lesion. Impression: IMPRESSION: Unremarkable intracranial MRV. No dural venous sinus thrombosis. Paint Grinder: CAMERON Transcribe Date/Time: Aug 18 2022 9:56A Dictated by : STEFANIE WALSH DO This examination was interpreted and the report reviewed and electronically signed by: STEFANIE WALSH DO on Aug 18 2022 10:03AM EST Assessment/Plan: Chart, labs,and relevant images reviewed. (more content not included)... [facility] 08-29-2022 History of Presen t illness Narrative Images from the original note were not included. [facility] Follow Up / Established Virtual Visit I received consent from the patient to perform the visit as a virtual encounter. Individuals who were included in, or assisted with the encounter were: Sheeba Morgan MD Primary Care Provider: Cristino Crain DO Chief Complaint: follow up Chart Review: Patient first seen in July for an episode in May with sudden onset word-finding difficulties, expressive aphasia. An MR head without contrast venogram showed possible left transverse sinus thrombosis due to minimal flow. Subsequently MRI was done but for unclear reasons was done without contrast venogram. MRI was then repeated with contrast. 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 I spoke with the patient on August 18 via [employer] and told her to stop taking her Eliquis. HPI: Susie has been doing well. She does not report any further episodes. 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 It is more likely that the episode was a complex migraine. We discussed that while there is a theoretical increased risk of strokes in patients with migraine with aura, the fact that she is only had 1 occurrence of this headache means that her risk is likely minimal when weighed against the thrombosis risk of . There is no problem list on file for this patient. PAST MEDICAL HISTORY Diagnosis Date NEGATIVE MEDICAL HISTORY Medications: Reviewed Current Outpatient Medications Medication Instructions apixaban (ELIQUIS) 5 mg, ORAL, 2 TIMES DAILY iv contrast (will be provided with radiology test) MRV Brain Inject, intravenously, once for 1 dose. No IV access, insert saline lock prior to the beginning of sedation, infusion, injection of imaging exam. Discontinue saline lock post exam. If Pt. has a central line or IVAD, may access for administration according to line specific nursing protocol. Once exam is complete flush line and de-access according to line specific nursing protocol in the MR contrast administration guidelines link. iv contrast (will be provided with radiology test) MRV Brain Inject, intravenously, once for 1 dose. No IV access, insert saline lock prior to the beginning of sedation, infusion, injection of imaging exam. Discontinue saline lock post exam. If Pt. has a central line or IVAD, may access for administration according to line specific nursing protocol. Once exam is complete flush line and de-access according to line specific nursing protocol in the MR contrast administration guidelines link. THERAPEUTIC MULTIVITAMIN TAB Take one(1) tablet daily. ALLERGIES No Known Allergies Family History Problem Relation Age of Onset other (history unknown) Mother adopted PAST SURGICAL HISTORY Procedure Laterality Date NONE Social Hx: Social History Tobacco Use Smoking status: Never Passive exposure: Yes Smokeless tobacco: Never Vaping Use Vaping Use: Some days Substances: Nicotine Devices: Disposable Substance Use Topics Alcohol use: Not Currently EXAMINATION Vitals deferred, virtual visit Fluent speech. No facial asymmetry. Labs: No results found for: HB, HCT, WBC, PLT 4.7 (09/29/2019) Radiology: MRV BRAIN WO/W IVCON Narrative: * * *Final Report* * * DATE OF EXAM: Aug 18 2022 9:39AM [facility] 0336 - MRV BRAIN WO/W IVCON / PROCEDURE REASON: Cerebral venous sinus thrombosis * * * * Physician Interpretation * * * * EXAMINATION: MRV BRAIN WO/W IVCON HISTORY: Cerebral venous sinus thrombosis TECHNIQUE: Intracranial 2-D [id number] and post gadolinium 3-D MR venography. Contrast: IV administration of 15 ml of Dotarem COMPARISON: Brain MRI 07/14/2022, head CTA 06/25/2022 RESULT: The superior sagittal, straight, transverse and sigmoid sinuses are patent without filling defect. 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 The internal cerebral veins and vein of Rogers are patent. The superior ophthalmic veins are not enlarged. The cavernous sinuses appear grossly symmetric. Single sagittal precontrast T1 acquisition through the brain is not revealing of any acute intracranial process including mass effect or obvious large space-occupying lesion. Impression: IMPRESSION: Unremarkable intracranial MRV. No dural venous sinus thrombosis. Paint Grinder: CAMERON Transcribe Date/Time: Aug 18 2022 9:56A Dictated by : STEFANIE WALSH DO This examination was interpreted and the report reviewed and electronically signed by: STEFANIE WALSH DO on Aug 18 2022 10:03AM EST Assessment/Plan: Chart, labs,and relevant images reviewed. The encounter diagnosis was Migraine with aura and without status migrainosus, not intractable. Repeat MRV with gadolinium very reassuring no evidence of venous sinus fibrosis. Event was likely migraine with complex aura. Patient has stopped her apixaban as instructed We discussed that while there is a theoretical increased risk of strokes in patients with migraine with aura, the fact that she is only had 1 occurrence of this headache means that her risk is likely minimal when weighed against the thrombosis risk of , so going back on OCP if she would like to is reasonable. Follow-up as needed This note was dictated using [employer] speech recognition software and may contain some errors that were a result of the program not accurately transcribing what was dictated, despite efforts to make corrections. PROMIS (Patient-Reported Outcomes Measurement Information System) is a set of person-centered measures that evaluates and monitors physical, social, and emotional health. It can be used with the general population and with individuals living with chronic conditions. PROMIS 10: PHYSICAL AND MENTAL HEALTH: I spent a total of 8 minutes on the date of the service which included preparing to see the patient, [id number] patient care, completing clinical documentation, obtaining and/or reviewing separately obtained history, performing a medically appropriate examination, counseling and educating the patient/family/caregiver and ordering medications, tests, or procedures. . Sheeba Morgan MD documented in this encounter [facility] 08-18-2022 Note HNO ID: [id number] Author: RT Chinyere(R) Service: Radiology Author Type: Car Worker Helper Type: Progress Notes Filed: 08/18/2022 9:26 AM Note Text: Radiology Service Progress Note PATIENT NAME: Ernestina Delong DATE OF SERVICE: August 18, 2022 TIME: 9:25 AM PATIENT IDENTITY VERIFICATION COMPLETED USING TWO (2) IDENTIFIERS: Name and Date of confirmed by patient verbally. FALL SCREENING: Has the patient had 2 falls in the last year or 1 fall with injury or currently using an Ambulatory Assistive Device (Walker, Cane, Wheelchair, Crutches, etc.)? No PATIENT GENDER DATA: Female. status: : No status: NO. PATIENT RELEVANT IMPLANT DATA REVIEWED: Yes RADIOLOGY DEPARTMENT: MR; Exam(s) Completed: Head: Sagittal Sinus MRV PERIPHERAL IV DATA: Site assessment: Clean,Dry and Intact, Site disposition Discontinued SIGNED BY: RT Chinyere(R) August 18, 2022 9:25 AM [facility] 08-18-2022 Note HNO ID: [id number] Author: Joelle Roach RN Service: Nursing Author Type: Registered Nurse Type: Progress Notes Filed: 08/18/2022 9:09 AM Note Text: Radiology Service Progress Note DATE OF SERVICE: August 18, 2022 TIME: 8:58 AM PATIENT WEIGHT: 160 LBS PATIENT IDENTITY VERIFICATION COMPLETED USING TWO (2) STANDARD IDENTIFIERS: .Name and Date of confirmed by patient verbally FALL SCREENING: Has the patient had 2 falls in the last year or 1 fall with injury or currently using an Ambulatory Assistive Device (Walker, Cane, Wheelchair, Crutches, etc.)? No PATIENT GENDER DATA: Female. status: : No status: NO. ALLERGIES: Reviewed and unchanged CONTRAST ALLERGY: No EXAM: MRI - CONTRAST TYPE: GROUP II IV SITE: Ambulatory: A peripheral IV was started in the Left antecubital site with a Angio cath: 22 gauge. and A Saline lock was inserted per protocol IV SITE APPEARANCE: Clean,Dry and Intact SIGNATURE: Joelle Roach RN PATIENT NAME: Ernestina Delong DATE: August 18, 2022 TIME: 8:58 AM [facility] 07-14-2022 Note HNO ID: [id number] Author: Jen Jiménez, gang supervisor pipe lines Service: ? Author Type: Car Worker Helper Type: Progress Notes Filed: 07/14/2022 1:29 PM Note Text: Radiology Service Progress Note PATIENT NAME: Ernestina Delong DATE OF SERVICE: July 14, 2022 TIME: 1:21 PM PATIENT IDENTITY VERIFICATION COMPLETED USING TWO (2) IDENTIFIERS: Name and Date of confirmed by patient verbally. FALL SCREENING: Has the patient had 2 falls in the last year or 1 fall with injury or currently using an Ambulatory Assistive Device (Walker, Cane, Wheelchair, Crutches, etc.)? No PATIENT GENDER DATA: Female. status: : No status: NO. PATIENT RELEVANT IMPLANT DATA REVIEWED: Yes RADIOLOGY DEPARTMENT: MR; Exam(s) Completed: Head: Routine Brain PERIPHERAL IV DATA: Not applicable SIGNED BY: Jen JIMÉNEZ RT, gang supervisor pipe lines July 14, 2022 1:21 PM [facility] 07-04-2022 Note HNO ID: [id number] Author: Sheeba Morgan MD Service: ? Author Type: Physician Type: Progress Notes Filed: 07/07/2022 8:44 AM Note Text: [facility] Name: Ernestina Delong Age: [age] year old Gender: female Primary Care Provider: Cristino Crain, DO Consult requested for ?stroke by Dr. Cristino Crain. Recommendations will be communicated via shared medical record or US mail. Chief Complaint:New Patient HPI: This very pleasant 21-year-old woman presents today with her to clinic. She had an episode on May 14 in which she was sitting on the couch and began to have trouble finding her words. She texted her that she felt like she was having a stroke. I reviewed the text. It had poor syntax and was slightly rambling. Spelling was mostly correct. She called a family member who is an EMT and an ambulance was called. She was taken to [facility]. She had an MR head with out contrast with MR venogram. There was minimal flow in the left transverse sinus with normal flow in the sigmoid sinus. Flow was normal in the remainder of the sinuses. Note that the patient did not have any occipital type findings such as homonymous hemianopsia. Patient was told to stop combined contraceptive pill and stop smoking cigarettes. Patient was also told not to drive. Patient eventually was started on Eliquis 5 mg twice daily. I do not see that a hypercoagulable profile was done. She then got a headache in the hospital which was slightly more severe than her usual headache. Patient reports that she had some numbness and tingling in all 4 limbs. She also felt like her right hand may have been weaker compared to her left but this is now resolved. She is also having some short-term memory issues and some rare word finding difficulties. She also reported being jumpy or easier to startle. She has had no double vision. She does get regular headaches that nearly always resolve with sleep, are bifrontal or bioccipital, not throbbing, no photophobia or photophobia but she prefers to rest. She does not have a personal or family history of multiple miscarriages, she does not have any recent or family history of autoimmune disease or other clots. She does report however that her mom is adopted Unfortunately MR images were not available to review today. There is no problem list on file for this patient. PAST MEDICAL HISTORY Diagnosis Date NEGATIVE MEDICAL HISTORY Medications: Reviewed Current Outpatient Medications on File Prior to Visit Medication Sig THERAPEUTIC MULTIVITAMIN TAB Take one(1) tablet daily. No current facility-administered medications on file prior to visit. ALLERGIES Allergen Reactions Amoxicillin Rash, Swelling Benadryl [Diphenhyd* Increased allergy symptoms. Claritin [Loratadin* Increased allergy symptoms FAMILY HISTORY Problem Relation Age of Onset other (history unknown) Mother adopted PAST SURGICAL HISTORY Procedure Laterality Date NONE SOCIAL HISTORY No social history on file. Tobacco Use: Medium Risk Smoking Tobacco Use: Never Smokeless Tobacco Use: Never Passive Exposure: Yes PHYSICAL EXAM 07/04/22 1310 BP: 112/71 Pulse: 86 Neurologic Exam Cognitive and Language: Alert and answered questions appropriately. Language was fluent including repetition and naming. Followed simple and complex commands. Cranial Nerves: Visual rangel were full tested binocularly to finger counting in all 4 quadrants with no visual extinction. Pupils were equal and both reactive to light. Extraocular movements were full with no diplopia or nystagmus. Facial sensation was normal to light touch in V1 to V3. Facial strength was symmetric. Normal hearing grossly bilaterally. Palatal raise was symmetric. Shoulder shrug was symmetric. Tongue protrusion was symmetric with no fasciculations. Right Left Shoulder Abduction: 5 5 Elbow Extension 5 5 Elbow Flexion 5 5 Wrist Extension 5 5 Finger Extension 5 5 Finger Abduction 5 5 Right Left Hip Flexion 5 5 Knee Extension 5 5 Knee Flexion 5 5 Dorsiflexion 5 5 Plantar Flexion 5 5 Rest tremor: absent Tone: Normal in all four limbs Reflexes: Right Left Brachioradialis 2 2 Biceps 2 2 Triceps 2 2 Patella 2 2 Ankle 2 2 Sensory: normal to light touch and pinprick x 4 limbs. Coordination: Normal finger to nose testing bilaterally. Negative romberg. Normal gait. Normal forearm rolling without circumduction. Labs: No results found for: WBC, HGB, HCT, MCV, PLT Lab Results Component Value Date HBA1C 4.7 09/29/2019 No results found for: CHOL, HDL, LDL, TG Radiology: As above, MR brain did not show any infarct but showed reduced flow in the left transverse sinus with normal flow in the sigmoid sinus. Did not have gadolinium MRV. CTA was ordered in late May but without venous phase. Normal routine EE (more content not included)... [facility] 07-04-2022 History of Presen t illness Narrative Images from the original note were not included. [facility] Name: Ernestina Delong Age: [age] year old Gender: female Primary Care Provider: Cristino Crain, DO Consult requested for ?stroke by Dr. Cristino Crain. Recommendations will be communicated via shared medical record or US mail. Chief Complaint:New Patient HPI: This very pleasant 21-year-old woman presents today with her to clinic. She had an episode on May 14 in which she was sitting on the couch and began to have trouble finding her words. She texted her that she felt like she was having a stroke. I reviewed the text. It had poor syntax and was slightly rambling. Spelling was mostly correct. She called a family member who is an EMT and an ambulance was called. She was taken to [facility]. She had an MR head with out contrast with MR venogram. There was minimal flow in the left transverse sinus with normal flow in the sigmoid sinus. Flow was normal in the remainder of the sinuses. Note that the patient did not have any occipital type findings such as homonymous hemianopsia. Patient was told to stop combined contraceptive pill and stop smoking cigarettes. Patient was also told not to drive. Patient eventually was started on Eliquis 5 mg twice daily. I do not see that a hypercoagulable profile was done. She then got a headache in the hospital which was slightly more severe than her usual headache. Patient reports that she had some numbness and tingling in all 4 limbs. She also felt like her right hand may have been weaker compared to her left but this is now resolved. She is also having some short-term memory issues and some rare word finding difficulties. She also reported being jumpy or easier to startle. She has had no double vision. She does get regular headaches that nearly always resolve with sleep, are bifrontal or bioccipital, not throbbing, no photophobia or photophobia but she prefers to rest. She does not have a personal or family history of multiple miscarriages, she does not have any recent or family history of autoimmune disease or other clots. She does report however that her mom is adopted Unfortunately MR images were not available to review today. There is no problem list on file for this patient. PAST MEDICAL HISTORY Diagnosis Date NEGATIVE MEDICAL HISTORY Medications: Reviewed Current Outpatient Medications on File Prior to Visit Medication Sig THERAPEUTIC MULTIVITAMIN TAB Take one(1) tablet daily. No current facility-administered medications on file prior to visit. ALLERGIES Allergen Reactions Amoxicillin Rash, Swelling Benadryl [Diphenhyd* Increased allergy symptoms. Claritin [Loratadin* Increased allergy symptoms FAMILY HISTORY Problem Relation Age of Onset other (history unknown) Mother adopted PAST SURGICAL HISTORY Procedure Laterality Date NONE SOCIAL HISTORY No social history on file. Tobacco Use: Medium Risk Smoking Tobacco Use: Never Smokeless Tobacco Use: Never Passive Exposure: Yes PHYSICAL EXAM 07/04/22 1310 BP: 112/71 Pulse: 86 Neurologic Exam Cognitive and Language: Alert and answered questions appropriately. Language was fluent including repetition and naming. Followed simple and complex commands. Cranial Nerves: Visual rangel were full tested binocularly to finger counting in all 4 quadrants with no visual extinction. Pupils were equal and both reactive to light. Extraocular movements were full with no diplopia or nystagmus. Facial sensation was normal to light touch in V1 to V3. Facial strength was symmetric. Normal hearing grossly bilaterally. Palatal raise was symmetric. Shoulder shrug was symmetric. Tongue protrusion was symmetric with no fasciculations. Right Left Shoulder Abduction: 5 5 Elbow Extension 5 5 Elbow Flexion 5 5 Wrist Extension 5 5 Finger Extension 5 5 Finger Abduction 5 5 Right Left Hip Flexion 5 5 Knee Extension 5 5 Knee Flexion 5 5 Dorsiflexion 5 5 Plantar Flexion 5 5 Rest tremor: absent Tone: Normal in all four limbs Reflexes: Right Left Brachioradialis 2 2 Biceps 2 2 Triceps 2 2 Patella 2 2 Ankle 2 2 Sensory: normal to light touch and pinprick x 4 limbs. Coordination: Normal finger to nose testing bilaterally. Negative romberg. Normal gait. Normal forearm rolling without circumduction. Labs: No results found for: WBC, HGB, HCT, MCV, PLT Lab Results Component Value Date HBA1C 4.7 09/29/2019 No results found for: CHOL, HDL, LDL, TG Radiology: As above, MR brain did not show any infarct but showed reduced flow in the left transverse sinus with normal flow in the sigmoid sinus. Did not have gadolinium MRV. CTA was ordered in late May but without venous phase. Normal routine EEG. Assessment/Plan: Chart, labs,and relevant images reviewed. 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 This 21-year-old woman had an episode of worsening difficulty and possibly right-sided weakness which resolved over a few hours. She continues to have some word finding difficulties and had some right-sided weakness but this has now also resolved. 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 As well despite the patient's strokelike symptoms, poor feeling in the transverse region would result in occipital findings on history or exam which the patient does not have. I am hesitant to commit her to anticoagulation without doing an MRI with gadolinium venogram. Thus I have ordered this. If it shows a congenitally small left transverse sinus, we can rest easy that this was likely a complex migraine [although her usual headaches do not sound migrainous]. If it suggests ongoing clot or resolving clot, will continue anticoagulation, order hypercoagulable panel, send to thrombosis clinic and or cerebrovascular Center. No contraindication to driving. No contraindication to progesterone minipill. She prefers to stay off control for now because she did not like side effects of it. She also had side effects with Mirena IUD. May need to get other MR images from outside hospital. Will review imaging at follow-up virtual visit unless sooner is required. Orders Placed This Encounter MRI Brain for Headache Standing Status: Future Standing Expiration Date: 08/03/2023 Order Specific Question: Does patient need anesthesia or anxiolysis: Answer: No anesthesia or anxiolysis needed Order Specific Question: Suspected diagnosis: Answer: Headache, persistent/atypical Order Specific Question: Feedback on new indications (will be displayed on the order) Answer: None iv contrast (will be provided with radiology test) Sig: MRV Brain Inject, intravenously, once for 1 dose. No IV access, insert saline lock prior to the beginning of sedation, infusion, injection of imaging exam. Discontinue saline lock post exam. If Pt. has a central line or IVAD, may access for administration according to line specific nursing protocol. Once exam is complete flush line and de-access according to line specific nursing protocol in the MR contrast administration guidelines link. Dispense: 1 Each Refill: 0 apixaban (ELIQUIS) 5 mg tab(s) Sig: Take 1 tablet by mouth twice daily. Dispense: 60 tablet Refill: 1 Return in about 5 weeks (around 08/08/2022). This note was dictated using [employer] speech recognition software and may contain some errors that were a result of the program not accurately transcribing what was dictated, despite efforts to make corrections. Note that unless urgent, test and MRI results will be discussed at next follow-up visit. PROMIS (Patient-Reported Outcomes Measurement Information System) is a set of person-centered measures that evaluates and monitors physical, social, and emotional health. It can be used with the general population and with individuals living with chronic conditions. PROMIS 10: PHYSICAL AND MENTAL HEALTH: PHQ-9 06/22/2022 Score 3 documented in this encounter [facility] 07-03-2022 Miscellaneous Notes Left message to call, also on message said sent a [employer] message and can reply that way as well. Advised to call back or respond by [employer] which ever she prefers. Shows last log into [employer] 06/29/22. Will send [employer] message, ----- Message from Cristino Crain DO sent at 06/30/2022 3:18 PM EDT ----- Ct eeg ok how doing> documented in this encounter [facility] 06-25-2022 Note HNO ID: [id number] Author: RT Salo(R) Service: Radiology Author Type: Technologist Type: Progress Notes Filed: 06/25/2022 10:53 AM Note Text: Radiology Service Progress Note PATIENT NAME: Ernestina Delong DATE OF SERVICE: June 25, 2022 TIME: 10:52 AM PATIENT IDENTITY VERIFICATION COMPLETED USING TWO (2) IDENTIFIERS: Name and Date of confirmed by patient verbally and Name and Date of confirmed by identification band. FALL SCREENING: Has the patient had 2 falls in the last year or 1 fall with injury or currently using an Ambulatory Assistive Device (Walker, Cane, Wheelchair, Crutches, etc.)? No PATIENT GENDER DATA: Female. status: : No status: NO. PATIENT RELEVANT IMPLANT DATA REVIEWED: Yes RADIOLOGY DEPARTMENT: CT; Exam(s) Completed: CTA Brain PERIPHERAL IV DATA: Site assessment: Clean,Dry and Intact, Site disposition Discontinued SIGNED BY: RT Salo(R) June 25, 2022 10:52 AM [facility] 06-25-2022 Note HNO ID: [id number] Author: Angela Vale RN Service: Radiology Author Type: Registered Nurse Type: Progress Notes Filed: 06/25/2022 10:30 AM Note Text: Radiology Service Progress Note DATE OF SERVICE: June 25, 2022 TIME: 10:26 AM PATIENT WEIGHT: 160 LBS PATIENT IDENTITY VERIFICATION COMPLETED USING TWO (2) STANDARD IDENTIFIERS: Name and Date of confirmed by patient verbally and Name and Date of confirmed by identification band. FALL SCREENING: Has the patient had 2 falls in the last year or 1 fall with injury or currently using an Ambulatory Assistive Device (Walker, Cane, Wheelchair, Crutches, etc.)? No PATIENT GENDER DATA: Female. status: : No status: NO. ALLERGIES: Reviewed and unchanged CONTRAST ALLERGY: No EXAM: CT -CONTRAST INDUCED NEPHROPATHY RISK FACTORS: Not applicable CREATININE: No results found for: CREAT, EGFROTH, EGFRAA P.O.C.T. RESULTS: N/A June 25, 2022 TREATMENT: N/A IV SITE: Ambulatory: A peripheral IV was started in the Left antecubital site with a Angio cath: 20 gauge. and A Saline lock was inserted per protocol IV SITE APPEARANCE: Clean,Dry and Intact SIGNATURE: Angela Vale RN PATIENT NAME: Ernestina Delong DATE: June 25, 2022 TIME: 10:26 AM [facility] 06-25-2022 History of Presen t illness Narrative Radiology Service Progress Note DATE OF SERVICE: June 25, 2022 TIME: 10:26 AM PATIENT WEIGHT: 160 LBS PATIENT IDENTITY VERIFICATION COMPLETED USING TWO (2) STANDARD IDENTIFIERS: Name and Date of confirmed by patient verbally and Name and Date of confirmed by identification band. FALL SCREENING: Has the patient had 2 falls in the last year or 1 fall with injury or currently using an Ambulatory Assistive Device (Walker, Cane, Wheelchair, Crutches, etc.)? No PATIENT GENDER DATA: Female. status: : No status: NO. ALLERGIES: Reviewed and unchanged CONTRAST ALLERGY: No EXAM: CT -CONTRAST INDUCED NEPHROPATHY RISK FACTORS: Not applicable CREATININE: No results found for: CREAT, EGFROTH, EGFRAA P.O.C.T. RESULTS: N/A June 25, 2022 TREATMENT: N/A IV SITE: Ambulatory: A peripheral IV was started in the Left antecubital site with a Angio cath: 20 gauge. and A Saline lock was inserted per protocol IV SITE APPEARANCE: Clean,Dry and Intact SIGNATURE: Angela Vale RN PATIENT NAME: Ernestina Delong DATE: June 25, 2022 TIME: 10:26 AM Radiology Service Progress Note PATIENT NAME: Ernestina Delong DATE OF SERVICE: June 25, 2022 TIME: 10:52 AM PATIENT IDENTITY VERIFICATION COMPLETED USING TWO (2) IDENTIFIERS: Name and Date of confirmed by patient verbally and Name and Date of confirmed by identification band. FALL SCREENING: Has the patient had 2 falls in the last year or 1 fall with injury or currently using an Ambulatory Assistive Device (Walker, Cane, Wheelchair, Crutches, etc.)? No PATIENT GENDER DATA: Female. status: : No status: NO. PATIENT RELEVANT IMPLANT DATA REVIEWED: Yes RADIOLOGY DEPARTMENT: CT; Exam(s) Completed: CTA Brain PERIPHERAL IV DATA: Site assessment: Clean,Dry and Intact, Site disposition Discontinued SIGNED BY: RT Salo(R) June 25, 2022 10:52 AM documented in this encounter [facility] 06-05-2022 Miscellaneous Notes Addended by: CRISTINO CRAIN on: 06/05/2022 02:08 PM Modules accepted: Orders senr Pt and her mom called in. At her appointment they forgot to request a refill on her Eliquis 5 Mg twice a day to [facility] in [facility]. documented in this encounter [facility] 06-04-2022 Miscellaneous Notes Kamila Temple from [facility] called into the office. She stated the Pt's insurance requires a referral but it cannot be submitted. It needs to be submitted by PCP. Kamila [phone] Ext [phone] documented in this encounter [facility] 06-03-2022 Note HNO ID: [id number] Author: Cristino Crain, Service: ? Author Type: Physician Type: Progress Notes Filed: 06/07/2022 6:17 PM Note Text: [facility] Nhung Crain DO [address] [place] [address] Date of Evaluation: 06/03/2022 Patient Name: Ernestina Delong : 2000 Chief Complaint: Patient presents with: Neurologic Problem: Stroke vs migraine, speech continues have mixup with words, memory issues, tingling in hands remain , unable to complete small tasks, loud noises - scare her, change in personality after MRI, mrv and ct scan - neuro wanted CTV and EEG - never completed Nursing Intake: There are no exam notes on file for this visit. Subjective Ms. Delong is a 21 year old female who presents with the following complaint(s): The history is provided by the patient, a parent and the spouse. Neurologic Problem This is a new problem. The problem occurs daily. The problem has been gradually improving. Associated symptoms include weakness. Pertinent negatives include no chest pain, coughing, fatigue, headaches or numbness. Associated symptoms comments: Difficulty speaking Muscle weakness Facial droop . Nothing aggravates the symptoms. She has tried nothing for the symptoms. Review of Systems Constitutional: Negative for fatigue and unexpected weight change. HENT: Negative for nosebleeds. Eyes: Negative for redness and visual disturbance. Respiratory: Negative for apnea, cough and shortness of breath. Cardiovascular: Negative for chest pain, palpitations and leg swelling. Genitourinary: Negative for hematuria. Neurological: Positive for speech difficulty and weakness. Negative for dizziness, light-headedness, numbness and headaches. Hematological: Does not bruise/bleed easily. Psychiatric/Behavioral: The patient is not nervous/anxious. PAST MEDICAL HISTORY Diagnosis Date NEGATIVE MEDICAL HISTORY PAST SURGICAL HISTORY Procedure Laterality Date NONE FAMILY HISTORY Problem Relation Age of Onset other (history unknown) Mother adopted Social History Tobacco Use Smoking status: Passive Smoke Exposure - Never Smoker Smokeless tobacco: Current Types: Chew Current Outpatient Medications Medication Sig Dispense Refill iv contrast (will be provided with radiology test) CTA Head W IVCON No IV access, insert saline lock prior to the sedation, infusion, injection for imaging exam. Discontinue saline lock post exam. If Pt. has a central line or IVAD, may access for administration according to line specific nursing protocol. Once exam is complete flush line and de-access according to line specific nursing protocol in the CT contrast administration guidelines link. 1 Each 0 Drospirenone-Ethinyl Estradiol (MANSI 28) 3-0.02 mg per tablet Take 1 tablet by mouth once daily. (Patient not taking: Reported on 09/29/2019 ) 1 Package 11 adapalene-benzoyl peroxide (EPIDUO) 0.1-2.5 % glwp Apply 1 application to affected area once daily. (Patient not taking: Reported on 10/05/2018 ) 1 Bottle 2 fluticasone (FLONASE) 50 mcg/actuation nasal spray Use 1 [place] in each nostril daily at bedtime. (Patient not taking: Reported on 09/29/2019 ) 1 Bottle 3 azithromycin (ZITHROMAX) 250 mg tablet Take 2 tablets today then one tablet daily for 4 days. (Patient not taking: Reported on 06/02/2018 ) 1 Package 0 sertraline (ZOLOFT) 50 mg tablet Take 1 tablet by mouth once daily. (Patient not taking: Reported on 09/29/2019 ) 30 tablet 2 CALCIUM PHOSPHATE DIBAS/VIT D3 (VITAMIN D, WITH CALCIUM, ORAL) Take by mouth once daily. montelukast chewable (SINGULAIR) 5 mg chewable tablet Take 1 tablet by mouth daily at bedtime. (Patient not taking: Reported on 09/29/2019 ) 30 tablet 6 magnesium oxide (MAG-OX) 400 mg tablet Take 1 tablet by mouth once daily. (Patient not taking: Reported on 09/29/2019 ) 30 tablet 2 VITAMIN B COMPLEX ORAL Take by mouth. THERAPEUTIC MULTIVITAMIN TAB Take one(1) tablet daily. 0 ascorbic acid(VITAMIN C 500 MG TAB) Take one(1) tablet daily. 0 No current facility-administered medications for this visit. I have confirmed and edited as necessary the past medical, family and social histories, HPI, and ROS obtained by others. Objective BP 100/66 Pulse 86 Ht 5' 8 (1.73m) Wt 164 lb (74.4kg) SpO2 97% LMP 05/19/2022 BMI 24.94 kg/(m2). Physical Exam Vitals and nursing note reviewed. Constitutional: General: She is not in acute distress. Appearance: Normal appearance. She is well-developed. She is not ill-appearing. HENT: Head: Normocephalic. Right Ear: Tympanic membrane, ear canal and external ear normal. There is no impacted cerumen. Left Ear: Tympanic membrane, ear canal and external ear normal. There is no impacted cerumen. Nose: Nose normal. Mouth/Throat: Mouth: Mucous membranes are moist. P (more content not included)... [facility] 06-03-2022 Miscellaneous Notes Confirmation number: [id number] documented in this encounter [facility] 06-03-2022 History of Presen t illness Narrative Images from the original note were not included. [facility] [address] [place] [address] Date of Evaluation: 06/03/2022 Patient Name: Ernestina Delong : 2000 Chief Complaint: Patient presents with: Neurologic Problem: Stroke vs migraine, speech continues have mixup with words, memory issues, tingling in hands remain , unable to complete small tasks, loud noises - scare her, change in personality after MRI, mrv and ct scan - neuro wanted CTV and EEG - never completed Nursing Intake: There are no exam notes on file for this visit. Subjective Ms. Delong is a 21 year old female who presents with the following complaint(s): The history is provided by the patient, a parent and the spouse. Neurologic Problem This is a new problem. The problem occurs daily. The problem has been gradually improving. Associated symptoms include weakness. Pertinent negatives include no chest pain, coughing, fatigue, headaches or numbness. Associated symptoms comments: Difficulty speaking Muscle weakness Facial droop . Nothing aggravates the symptoms. She has tried nothing for the symptoms. Review of Systems Constitutional: Negative for fatigue and unexpected weight change. HENT: Negative for nosebleeds. Eyes: Negative for redness and visual disturbance. Respiratory: Negative for apnea, cough and shortness of breath. Cardiovascular: Negative for chest pain, palpitations and leg swelling. Genitourinary: Negative for hematuria. Neurological: Positive for speech difficulty and weakness. Negative for dizziness, light-headedness, numbness and headaches. Hematological: Does not bruise/bleed easily. Psychiatric/Behavioral: The patient is not nervous/anxious. PAST MEDICAL HISTORY Diagnosis Date NEGATIVE MEDICAL HISTORY PAST SURGICAL HISTORY Procedure Laterality Date NONE FAMILY HISTORY Problem Relation Age of Onset other (history unknown) Mother adopted Social History Tobacco Use Smoking status: Passive Smoke Exposure - Never Smoker Smokeless tobacco: Current Types: Chew Current Outpatient Medications Medication Sig Dispense Refill iv contrast (will be provided with radiology test) CTA Head W IVCON No IV access, insert saline lock prior to the sedation, infusion, injection for imaging exam. Discontinue saline lock post exam. If Pt. has a central line or IVAD, may access for administration according to line specific nursing protocol. Once exam is complete flush line and de-access according to line specific nursing protocol in the CT contrast administration guidelines link. 1 Each 0 Drospirenone-Ethinyl Estradiol (MANSI 28) 3-0.02 mg per tablet Take 1 tablet by mouth once daily. (Patient not taking: Reported on 09/29/2019 ) 1 Package 11 adapalene-benzoyl peroxide (EPIDUO) 0.1-2.5 % glwp Apply 1 application to affected area once daily. (Patient not taking: Reported on 10/05/2018 ) 1 Bottle 2 fluticasone (FLONASE) 50 mcg/actuation nasal spray Use 1 [place] in each nostril daily at bedtime. (Patient not taking: Reported on 09/29/2019 ) 1 Bottle 3 azithromycin (ZITHROMAX) 250 mg tablet Take 2 tablets today then one tablet daily for 4 days. (Patient not taking: Reported on 06/02/2018 ) 1 Package 0 sertraline (ZOLOFT) 50 mg tablet Take 1 tablet by mouth once daily. (Patient not taking: Reported on 09/29/2019 ) 30 tablet 2 CALCIUM PHOSPHATE DIBAS/VIT D3 (VITAMIN D, WITH CALCIUM, ORAL) Take by mouth once daily. montelukast chewable (SINGULAIR) 5 mg chewable tablet Take 1 tablet by mouth daily at bedtime. (Patient not taking: Reported on 09/29/2019 ) 30 tablet 6 magnesium oxide (MAG-OX) 400 mg tablet Take 1 tablet by mouth once daily. (Patient not taking: Reported on 09/29/2019 ) 30 tablet 2 VITAMIN B COMPLEX ORAL Take by mouth. THERAPEUTIC MULTIVITAMIN TAB Take one(1) tablet daily. 0 ascorbic acid(VITAMIN C 500 MG TAB) Take one(1) tablet daily. 0 No current facility-administered medications for this visit. I have confirmed and edited as necessary the past medical, family and social histories, HPI, and ROS obtained by others. Objective BP 100/66 Pulse 86 Ht 5' 8 (1.73m) Wt 164 lb (74.4kg) SpO2 97% LMP 05/19/2022 BMI 24.94 kg/(m^2). Physical Exam Vitals and nursing note reviewed. Constitutional: General: She is not in acute distress. Appearance: Normal appearance. She is well-developed. She is not ill-appearing. HENT: Head: Normocephalic. Right Ear: Tympanic membrane, ear canal and external ear normal. There is no impacted cerumen. Left Ear: Tympanic membrane, ear canal and external ear normal. There is no impacted cerumen. Nose: Nose normal. Mouth/Throat: Mouth: Mucous membranes are moist. Pharynx: Oropharynx is clear. Uvula midline. No oropharyngeal exudate or posterior oropharyngeal erythema. Eyes: General: Lids are normal. Vision grossly intact. Gaze aligned appropriately. No scleral icterus. Right eye: No discharge. Left eye: No discharge. Extraocular Movements: Extraocular movements intact. Conjunctiva/sclera: Conjunctivae normal. Pupils: Pupils are equal, round, and reactive to light. Neck: Thyroid: No thyroid mass, thyromegaly or thyroid tenderness. Vascular: No carotid bruit. Trachea: Trachea and phonation normal. Cardiovascular: Rate and Rhythm: Normal rate and regular rhythm. Pulses: Normal pulses. Heart sounds: Normal heart sounds. Pulmonary: Effort: Pulmonary effort is normal. Breath sounds: Normal breath sounds. Abdominal: General: Abdomen is flat. Bowel sounds are normal. Palpations: Abdomen is soft. Musculoskeletal: General: Normal range of motion. Right shoulder: Normal. Left shoulder: Normal. Cervical back: Normal, full passive range of motion without pain and neck supple. No tenderness. No spinous process tenderness. Thoracic back: Normal. Lumbar back: Normal. Right knee: Normal. Left knee: Normal. Right lower leg: No edema. Left lower leg: No edema. Lymphadenopathy: Cervical: No cervical adenopathy. Skin: General: Skin is warm and dry. Neurological: General: No focal deficit present. Mental Status: She is alert and oriented to person, place, and time. Mental status is at baseline. Sensory: Sensation is intact. Motor: Motor function is intact. Psychiatric: Attention and Perception: Attention and perception normal. Mood and Affect: Mood normal. Speech: Speech normal. Behavior: Behavior normal. Thought Content: Thought content normal. Judgment: Judgment normal. Data Reviewed: Most recent labs ASSESSMENT/PLAN: 1. TIA (transient ischemic attack) - ICD9: 435.9, ICD10: G45.9 (primary diagnosis) - obtain EEG - obtain CTA - EPIL EEG ROUTINE - CTA HEAD W IVCON - IV CONTRAST (RADIOLOGY PROCEDURE) - CONSULT TO NEUROLOGY 2. Seizure disorder (HCC) - ICD9: 345.90, ICD10: G40.909 - Obtain EEG - EPIL EEG ROUTINE - CTA HEAD W IVCON - IV CONTRAST (RADIOLOGY PROCEDURE) - CONSULT TO NEUROLOGY Cristino Crain DO Return if symptoms worsen or fail to improve. Attestation: Scribe Statement: Rosana Donohue am scribing for, and in the presence of, Cristino Crain DO June 03, 2022 11:47 AM. Physician Statement: I, Cristino Crain DO, personally performed the services described in the documentation, as scribed by Stephy Donohue in my presence, and it is both accurate and complete June 03, 2022 12:04 PM. 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 [facility] Diagnosis Migraine with aura and without status migrainosus, not intractable- Primary Migraine with aura, without mention of intractable migraine without mention of status migrainosus documented in this encounter [facility] Summary Purpose Family History No Family History Records FoundNo Family History Records FoundNo Family History Records Found Advance Directives No Advanced Directives Records FoundNo Advanced Directives Records FoundNo Advanced Directives Records Found Reason for Referral Specialty Diagnoses / Procedures Referred By Contac t Referred To Contact NEUROLOGY Diagnoses TIA (transient ischemic attack) Seizure disorder (HCC) Procedures CONSULT TO NEUROLOGY OFFICE/OUTPATIENT [facility] 60-74 MINUTES [facility], [place] [address] Neur Ag [facility] [address] [facility] [address] [place] [address] Referral ID Status Reason Start Date Expiration Date Visits Requested Visits Authorized [id number] Waiting for Response PCP Requested Referral 06/03/2022 06/03/2023 1 1 Specialty Diagnoses / Procedures Referred By Contac t Referred To Contact RADIO CT SCAN [facility] Diagnoses TIA (transient ischemic attack) Seizure disorder (HCC) Procedures CTA HEAD W IVCON CT ANGIOGRAPHY HEAD W/CONTRAST/[facility]CONTRAST [facility] [place] [address] [facility] [address] [place] [address] Referral ID Status Reason Start Date Expiration Date Visits Requested Visits Authorized [id number] Authorized Auto-Generat ed Referral 06/03/2022 07/03/2023 1 1 Specialty Diagnoses / Procedures Referred By Contac t Referred To Contact NEUROLOGY Diagnoses TIA (transient ischemic attack) Seizure disorder (HCC) Procedures EPIL EEG ROUTINE ELECTROENCEPHALOGRAM REC COMA/SLEEP ONLY Cristino Crain DO [address] [place] [address] Neur Ag [facility] [address] [place] [address] Referral ID Status Reason Start Date Expiration Date Visits Requested Visits Authorized [id number] Waiting for Response Auto-Generat ed Referral 06/03/2022 06/03/2023 1 1 Referral ID Status Reason Start Date Expiration Date V isits Requested Visits Authorized [id number] Closed Auto-Generate d Referral 06/03/2022 07/03/2023 1 1 Specialty Diagnoses / Procedures Referred By Amy oconnell Referred To Contact MR IMAGING Diagnoses Cerebral venous sinus thrombosis Procedures MRI BRAIN WO IVCON MRI BRAIN BRAIN STEM W/O CONTRAST MATERIAL Sheeba Morgan MD [address] [place] [address] Mr Imaging Referral ID Status Reason Start Date Expiration Date Visits Requested Visits Authorized [id number] Pending Review Auto-Generat ed Referral 07/04/2022 08/03/2023 1 1 Additional Source Comments INFORMATION SOURCE (unrecogn ized section and content) DATE CREATED AUTHOR AUTHOR'S ORGANIZ ATION 07/24/2022 [facility] DATE CREATED AUTHOR AUTHOR'S ORGANIZ ATION 08/30/2022 [facility] Source Comments (unrecognize d section and content) In the event this informatio n is protected by the Federal Confidentiality of Alcohol and Drug Abuse Patient Records regulations: The Federal rules restrict any use of the information to criminally investigate or prosecute any alcohol or drug abuse patient.[facility] event this information is protected by the Federal Confidentiality of Alcohol and Drug Abuse Patient Records regulations: The Federal rules restrict any use of the information to criminally investigate or prosecute any alcohol or drug abuse patient.[facility] the event this information is protected by the Federal Confidentiality of Alcohol and Drug Abuse Patient Records regulations: The Federal rules restrict any use of the information to criminally investigate or prosecute any alcohol or drug abuse patient.[facility] the event this information is protected by the Federal Confidentiality of Alcohol and Drug Abuse Patient Records regulations: The Federal rules restrict any use of the information to criminally investigate or prosecute any alcohol or drug abuse patient.[facility] the event this information is protected by the Federal Confidentiality of Alcohol and Drug Abuse Patient Records regulations: The Federal rules restrict any use of the information to criminally investigate or prosecute any alcohol or drug abuse patient.[facility] the event this information is protected by the Federal Confidentiality of Alcohol and Drug Abuse Patient Records regulations: The Federal rules restrict any use of the information to criminally investigate or prosecute any alcohol or drug abuse patient.[facility] the event this information is protected by the Federal Confidentiality of Alcohol and Drug Abuse Patient Records regulations: The Federal rules restrict any use of the information to criminally investigate or prosecute any alcohol or drug abuse patient.[facility] the event this information is protected by the Federal Confidentiality of Alcohol and Drug Abuse Patient Records regulations: The Federal rules restrict any use of the information to criminally investigate or prosecute any alcohol or drug abuse patient.[facility] Reason for Visit (unrecogniz ed section and content) Reason Comments Refill Request Reason Comments Neurologic Problem Stroke vs migraine, speech continues have mixup with words, memory issues, tingling in hands remain , unable to complete small tasks, loud noises - scare her, change in personality after MRI, mrv and ct scan - neuro wanted CTV and EEG - never completed Specialty Diagnoses / Procedures Referred By Contac t Referred To Contact Family Medicine / FAMILY MEDICINE Diagnoses stroke, and wellness check Procedures OFFICE/OUTPATIENT [facility] MDM 60-74 MINUTES [address]C NEW [facility] Stephania Crainland Orlin, DO [address] [place] [address] Referral ID Status Reason Start Date Expiration Date V isits Requested Visits Authorized [id number] Closed Clearance Not Met -Financial Clearance Bypassed 06/03/2022 09/01/2022 [address] Specialty Diagnoses / Procedures Referred By Contac t Referred To Contact RADIO CT SCAN [facility] Diagnoses TIA (transient ischemic attack) Seizure disorder (HCC) Procedures CTA HEAD W IVCON CT ANGIOGRAPHY HEAD W/CONTRAST/NONCONTRAST Cristino Crain, DO [address] [place] [address] [facility] [address] [place] [address] Referral ID Status Reason Start Date Expiration Date V isits Requested Visits Authorized [id number] Closed Auto-Generate d Referral 06/03/2022 07/03/2023 1 1 Reason Comments New Patient Specialty Diagnoses / Procedures Referred By Contac t Referred To Contact Neurology / ADULT NEUROLOGY Diagnoses TIA (transient ischemic attack) Seizure (HCC) TIA,Seizure Procedures OFFICE/OUTPATIENT NEW [facility] MDM 15-29 MINUTES OFFICE/OUTPATIENT NEW [facility]IGH MDM 60-74 MINUTES NEW [facility] Sheeba Morgan MD [address] [place] [address] Sheeba Morgan MD [address] [id number] Referral ID Status Reason Start Date Expiration Date Visits Re quested Visits Authorized [id number] Closed 06/26/2022 08/30/2022 1 1 Reason Comments 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 Reason Comments Follow Up Specialty Diagnoses / Procedures Referred By Contac t Referred To Contact MR IMAGING Diagnoses Cerebral venous sinus thrombosis Procedures MRV BRAIN WO/W IVCON MRA; HEAD W & WO CONTRAST Analy Sanchez PA-C [address] [place] [id number] Mr Imaging Referral ID Status Reason Start Date Expiration Date Visits Requested Visits Authorized [id number] Authorized Auto-Generate d Referral Financial Clearance Required - Self Pay Patient Cleared - Qualified 100% FAS 2 10/16/2022 99 99 Care Teams (unrecognized sec tion and content) Security Officer Relationship Specialty Start Date End Date Cristino Crain, [address] [address] PCP - General Family Medicine 06/03/22 Security Officer Relationship Specialty Start Date End Date Cristino Crain, [address] [address] PCP - General Family Medicine 06/03/22 Security Officer Relationship Specialty Start Date End Date Cristino Crain [address] [address] PCP - General Family Medicine 06/03/22 Security Officer Relationship Specialty Start Date End Date Cristino Crain, [address] [address] PCP - General Family Medicine 06/03/22 Security Officer Relationship Specialty Start Date End Date Cristino Crain, [address] [address] PCP - General Family Medicine 06/03/22 Security Officer Relationship Specialty Start Date End Date Cristino Crain[address] [address] PCP - General Family Medicine 06/03/22 Security Officer Relationship Specialty Start Date End Date Cristino Crain[address] [address] PCP - General Family Medicine 06/03/22 FOR RECORDS PERTAINING TO PATIENTS WHO ARE OR HAVE BEEN ENROLLED IN A CHEMICAL DEPENDENCY/SUBSTANCEABUSE PROGRAM, SOME INFORMATION MAY BE OMITTED. This clinical summary was aggregated from multiple sources. Caution should be exercised in using it in the provision of clinical care. This summary normalizes information from multiple sources, and as a consequence, information in this document may materially change the coding, format and clinical context of patient data. In addition, data may be omitted in some cases. CLINICAL DECISIONS SHOULD BE BASED ON THE PRIMARY CLINICAL RECORDS. [facility], [facility]. provides no warranty or guarantee of the accuracy or completeness of information in this document.
--- NOTE | 2023-09-05 10:09 | OB.TRI.PN_ITS ---
Progress Notes Date of Service: 09/05/23 Progress Note: Patient presents for triage evaluation secondary to uterine contractions FHT: 135 Moderate variability reactive no decelerations category I tracing [place]: irregular Contractions Assessment and plan: Reactive NST, no cervical change, reassuring maternal and status patient discharged to home to follow-up in office at next appointment. See problem list details for additional plan information. Charges/Coding Multi Select Codes Urinary/Genital Urinary/Genital CPT Codes: 96671-64 non-stress test Interp
--- NOTE | 2023-09-05 20:57 | HP.PCM.OB_ITS ---
HPI - General General Date of Admission: 09/05/23 Date of Service: 09/05/23 HPI Narrative MOISES MALIK, is a 22 F at 39.1 weeks who presents to L&D in active labor. Coping well with contractions. Plan for admission. Maternal Data Information FLORENTINO Calculator Estimated Delivery Date Method Current WG Current Estimate 09/11/23 LMP (Certain) 39w 1d Final FLORENTINO: 09/11/23 Final FLORENTINO Source: US >20 weeks Gestational age: 39.1 weeks [facility] PFS Medical History Migraine Home Medications multivitamin no.47-iron fum 27 mg-folate no.1 1 mg-dha 300 mg capsule (PNV-DHA) 1 cap PO 02/05/23 [History Last Taken 09/04/23 21:00] Allergy/AdvReac Type Severity Reaction Status Date / Time amoxicillin Allergy Hives Verified 09/05/23 01:40 diphenhydramine Allergy Hives Verified 09/05/23 01:40 [From Benadryl] loratadine [From Claritin] Allergy Hives Verified 09/05/23 01:40 Family History Mother Spina bifida Brother Deafness Other Cancer Diabetes Heart disease Surgical History History of tonsillectomy and adenoidectomy [place] teeth extracted Social History adopted: No household members: family housing: house current occupational status: employed 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 current occupational exposures/hazards: No pets and animals: Yes (Not managing litterbox while ) pets and animals: cat(s) and dog(s) history of recent travel: No sexually active: Yes Smoking Status: Former smoker quit date: 01/08/23 alcohol intake: current alcohol intake frequency: holidays/special occasions only substance use type: does not use well-balanced diet: daily or most days caffeine: Yes Type: carbonated beverages Number of servings: 1 eating out: 1-3 times/week during the past year weight has: increased > 10 lbs what type of physical activity do you participate in: none maame/baptist: None seatbelt use: always do you feel safe at home: Yes additional social history: - [employer] History 1 Elective abortions Hx Para 0 Spontaneous abortions Hx # Term Pregnancies Ectopic pregnancies Hx # Pregnancies Multiple births # of living children Visit Details Expected Delivery Route/Plan Labor Preferences- CB/BF classes: enc labor support person: [] labor intervention preferences: [] pain management options preferred: epidural cut cord/dad catch: cord : yes PP control planned: unsure discussed possible routes of delivery and associated risks: discussed possible delivery modalities and possible indications for each including R/B/A of , VAVD, and CS. questions answered. special requests: [] Plans Covid status: discussed Flu vaccine: discussed, obtained 07/17 Tdap vaccine: obtained Rhogam: na LARC form signed: completed movement and labor precautions reviewed. Problem list reviewed and updated with the most current plan of care details and appropriate orders placed. Relevant counseling for the gestational age provided. Continue routine care and follow up unless otherwise noted in visit notes/problem list details OB Flowsheet Initial Weight: Not Recorded Date -?-?-?-?-?-?-?-?-?-?-?-?- EGA Weight BP Urine Prot -?-?-?-?-?-?-?-?-?-?-?-?- Glucose FHR FuHt Pres Dilation -?-?-?-?-?-?-?-?-?-?-?-?- Effaced St Visit Note 02/06/23 -?-?-?-?-?-?-?-?-?-?-?-?- 9w 0d 176 lb 2 oz 118/77 Nega tive -?-?-?-?-?-?-?-?-?-?-?-?- Negative 180 -?-?-?-?-?-?-?-?-?-?-?-?- JV- CRL consist ent with LMP. Florentino 09/11/23 wants nipt and carrier. see problem list 03/06/23 -?-?-?-?-?-?-?-?-?-?-?-?- 13w 0d 176 lb 107/74 Negative -?-?-?-?-?-?-?-?--?-?-?-?- Negative 150 -?-?-?-?-?-?-?-?-?-?-?-?- SM- reivewed lab s and discussed doesn't need anticoagulation, had complex migraine. 04/17/23 -?-?-?-?-?-?-?-?-?-?-?-?- 19w 0d 182 lb 4 oz 124/85 Nega tive -?-?-?-?-?-?-?-?-?-?-?-?- Negative 150 -?-?-?-?-?-?-?-?-?-?-?-?- SM- no vb lof go od fm no regualr ctx nl anatomy declined afp 05/15/23 -?-?-?-?-?-?-?-?-?-?-?-?- 23w 0d 189 lb 2 oz 126/84 Nega tive -?-?-?-?-?-?-?-?-?-?-?-?- Negative 150 23 -?-?-?-?-?-?-?-?-?-?-?-?- LC- no vb/lof/ct x. feeling movement. 28 week labs ordered. 06/12/23 -?-?-?-?-?-?-?-?-?-?-?-?- 27w 0d 195 lb 2 oz 132/88 Nega tive -?-?-?-?-?-?-?-?-?-?-?-?- Negative 140 27 -?-?-?-?-?-?-?-?-?-?-?-?- SM- no vb lof go od fm no regular ctx gct today declined flu vaccine 07/03/23 -?-?-?-?-?-?-?-?-?-?-?-?- 30w 0d 201 lb 6 oz 131/83 Nega tive -?-?-?-?-?-?-?-?-?-?-?-?- Negative 146 30 Transverse -?-?-?-?-?-?-?-?-?--?-?-?- JV- no lof, vagi nal bleeding, or dec fm. no complaints. 07/17/23 -?-?-?-?-?-?-?-?-?-?-?-?- 32w 0d 204 lb 108/75 Negative -?-?-?-?-?-?-?-?-?-?-?-?- Negative 150 32 -?-?-?-?-?-?-?-?-?-?-?-?- LC_ no lof/ctx/v b. good fm. having BRITTANY like vaginal odor, genital swab obtain, rapid bv negative. 07/31/23 -?-?-?-?-?-?-?-?-?-?-?-?- 34w 0d 209 lb 6 oz 124/81 Nega tive -?-?-?-?-?-?-?-?-?-?-?-?- Negative 154 34 Cephalic -?-?-?-?-?-?-?-?-?-?-?-?- JV- bedside scan for patient reassurance today. no complaints. 08/14/23 -?-?-?-?-?-?-?-?-?-?-?-?- 36w 0d 214 lb 125/85 Trace -?-?-?-?-?-?-?-?-?-?-?-?- Negative 145 37 Cephalic 0 .5 -?-?-?-?-?-?-?-?-?-?-?-?- 20 -3 SM- no vb lof good fm no regular ctx 08/21/23 -?-?-?-?-?-?-?-?-?-?-?-?- 37w 0d 216 lb 8 oz 111/77 Nega tive -?-?-?-?-?-?-?-?-?-?-?-?- Negative 165 36.5 Cephalic 1 -?-?-?-?-?-?-?-?-?-?-?-?- 50 -3 JV- no lof , vaginal bleeding, or dec fm. 08/28/23 -?-?-?-?-?-?-?-?-?-?-?-?- 38w 0d 217 lb 8 oz 122/84 Nega tive -?-?-?-?-?-?-?-?-?-?-?-?- Negative 145 38 Cephalic 1 -?--?-?-?-?-?-?-?-?-?-?-?- 50 -1 SM- no vb lof good fm fno regular ctx 09/04/23 -?-?-?-?-?-?-?-?-?-?-?-?- 39w 0d 220 lb 4 oz 137/89 Nega tive -?-?-?-?-?-?-?-?-?-?-?-?- Negative 150 41 Cephalic 2 -?-?-?-?-?-?-?-?-?-?-?-?- 70 0 SM- no vb lof good fm no regular ctx. membranes swept per patient request, severe pelvic pain and measuring large ordered growth scan for thursday and discussed consider IOL if no labor based on EFW and if doesn't go into labor next week NST FHR Rate Baby A Baseline: 140 Variability:: Moderate Accelerations:: 15 x 15 Decelerations:: None NST Reactive:: Yes FHR Category:: Category I Uterine Activity:: 4-5 minutes ROS Constitutional Constitutional: Denies change in weight, fatigue, fever(s), headache(s), poor appetite or weakness Eyes Eyes: Denies blurry vision, change in vision, floaters, seeing flashes or spots in vision ENT HEENT: Denies dizziness, headache(s), loss taste/smell or sore throat Cardiovascular Cardiovascular: Denies chest pain, dizziness, dyspnea, irregular heart rhythm, lightheadedness, palpitations or rapid heart rate Respiratory/Chest Respiratory/Chest: Denies change in mental status, chest tightness, cough, dyspnea or breast pain Gastrointestinal Gastrointestinal: Denies anorexia, chewing difficulty, constipation, diarrhea or weight changes Genitourinary Genitourinary: Denies difficulty urinating, dysuria, flank pain, genital pain, urinary frequency or urinary urgency Musculoskeletal Musculoskeletal: Denies back pain, difficulty walking, extremity pain, joint pain, muscle cramps or muscle weakness Integumentary Integumentary: Denies lesions or unusual bruising Neurologic Neurologic: Denies abnormal movements, abnormal speech, dizziness, numbness, seizure-like activity, syncope or weakness Psychiatric Psychiatric: Denies behavioral changes, change in appetite, confusion, depression, homicidal ideation, suicidal ideation or suicidal thoughts Endocrine Endocrinology: Denies excessive sweating, polydipsia or polyuria Hematologic/Lymphatic Hematologic/Lymphatic: Denies anemia Allergic/Immunologic Allergic/Immunologic: Denies itchy eyes, lip swelling, throat swelling, tongue swelling or wheezing Vital Signs Vital Signs Vital Signs: 09/05/23 01:43 09/05/23 01:43 09/05/23 01:43 Temperature Temperature Source Pulse Rate 82 86 Blood Pressure 136/87 H BP Systolic 136 BP Diastolic 87 Pulse Ox 09/05/23 01:43 09/05/23 01:43 09/05/23 01:43 Temperature Temperature Source Temporal Pulse Rate Blood Pressure BP Systolic BP Diastolic Pulse Ox 98 97 09/05/23 01:43 09/05/23 20:35 09/05/23 20:35 Temperature 99.6 F H Temperature Source Pulse Rate 97 Blood Pressure 126/73 H BP Systolic 126 BP Diastolic 73 Pulse Ox 09/05/23 20:37 09/05/23 20:37 Temperature Temperature Source Pulse Rate 103 H Blood Pressure BP Systolic BP Diastolic Pulse Ox 97 Weight Weight: 217 lb 13.067 oz Body Mass Index (BMI) 31.2 Physical Exam Const alert, oriented x3 and no apparent distress General Appearance: cooperative Orientation / Consciousness: awake HEENT normocephalic Neck full ROM Lymph Lymphatic: no lymphadenopathy noted Chest inspection of chest normal Resp normal respiratory effort and normal air movement Effort and Inspection: able to speak in complete sentences and symmetric chest movement GI soft to palpation and non-tender Inspection: gravid Palpation: soft; Negative for tender external exam normal Manual OB Exam: dilated 4, effaced 90 and station -1 Back/Spine normal to inspection Extremity normal to inspection and full ROM Skin no rashes or lesions noted Psych mental status grossly normal Appearance: grossly normal Speech: normal speech Labs Labs Labs: Blood Type B POSITIVE Antibody Screen NEGATIVE Hct 38.5 % (37-47) Hgb 12.4 g/dL (12.0-15.0) Obstetrics Ultrasound Syphilis Total Ab Non-reactive Rubella IgG Antibody Reactive (Nonreactive) Hep Bs Antigen Non-Reactive (Nonreactive) Hepatitis C Antibody Non-Reactive (Nonreactive) Chlamydia DNA (KAYLEEN) Negative (Negative) N.gonorrhoeae DNA (KAYLEEN) Negative (Negative) HIV 1&2 Antibody Non-Reactive (Nonreactive) Glucose 1 Hr 50 gm 102 mg/dL (70-140) Assessment & Plan (1) Active labor: PLAN: Patient presents IAL, plan expectant management for , pitocin/AROM PRN if needed. Pain management: plans epidural. GBS negative. Management of any complications: uterine size-date discrepancy I have reviewed the [facility] and made any clinically relevant updates. Dr Chong aware and agrees with above assessment and plan. (2) Uterine size-date discrepancy, third trimester: COMMENT: US ordered (3) Family history of autism in sibling: (4) Supervision of high-risk : COMMENT: [id number], FLORENTINO 09/11/23 girl secret [place]se[place] (5) : QUALIFIERS: Weeks of gestation: 39 weeks Qualified Code(s): Z3A.39 - 39 weeks gestation of COMMENT: GBS neg, NIPT low risk, carrier neg. . declined ntd screen. (6) Migraine: COMMENT: was on blood thinners for severe complex migraine. was smoking and on ocps. the mri and ct were negative here but states that was sent to [facility] and they gave her blood thinners for 2 months. will need records to know if needs to be on lovenox. Charges/Coding Multi Select Codes Urinary/Genital Urinary/Genital CPT Codes: No Charge
--- OUTSIDE RECORDS SUMMARY | 2023-09-05 20:57 | XMS RPT_ITS | CCD ---
Author Name Unknown Address [address] [place] [address] Organization [facility] Care Team Providers Care Branch Account Executive Name Role Phone Breann MOORE, Lacey Orlin Primary Care [facility] er CRISTINO CRAIN Attending Dilshad lable [facility] Primary Care Unavai lable BREANN[facility] Primary Care Unavarosana blakelyle SHEEBA MORGAN Attending SHEEBA Mills Referring Unavailable BREANN, [facility] Primary Care Unavai lable BREANN, WAPELLO ORLIN Referring Unavai lable BREANN, WAPELLO ORLIN Primary Care Unavai lable BREANN, WAPELLO ORLIN Referring Unavai lable [facility] Primary Care SHEEBA Byers Attending SHEEBA Mills Referring Unavailable BREANN, [facility] Primary Care UnaANALY Cassidy Referring Unavailable BREANN, [facility] Primary Care Unavai lable JUSTSHEEBA Referring Unavailable Breann DO, Lacey Orlin Primary Care [facility] er Allergies Allergy Classification Reported Allergen(s) Allergy Type Date of Onset Reaction(s) Facility (10 sources) Amoxicillin; Translations: [AMOXICILLIN] Drug Allergy 11-07-2016 Rash, Swelling [facility] Work Phone: (10 sources) diphenhydrAMINE; Translations: [DIPHENHYDRAMINE HCL] Drug Allergy 10-23-2009 [facility] (10 sources) Loratadine; Translations: [LORATADINE] Drug Allergy 10-23-2009 [facility] Medications Completed/Discontinued Medications Medication Drug Class(es) Dates [...] 175.3 cm Sheeba Morgan MD Work Phone: [facility] 07-04-2022 13:10-0400 Body weight 72.58 kg Sheeba Morgan MD Work Phone: [facility] 07-04-2022 13:10-0400 Diastolic blood pressure 71 mm[Hg] Sheeba Morgan MD Work Phone: [facility] 07-04-2022 13:10-0400 Heart rate 86 /min Sheeba Morgan MD Work Phone: [facility] 07-04-2022 13:10-0400 SaO2% (BldA) [Mass fraction] 98 % Sheeba Morgan MD Work Phone: [facility] 07-04-2022 13:10-0400 Systolic blood pressure 112 mm[Hg] Sheeba Morgan MD Work Phone: [facility] 06-03-2022 11:26-0400 Body height 172.7 cm Cristino Crain DO Work Phone: [facility] 06-03-2022 11:26-0400 Body weight 74.39 kg Cristino Crain DO Work Phone: [facility] 06-03-2022 11:26-0400 Diastolic blood pressure 66 mm[Hg] Cristino Breann DO Work Phone: [facility] 06-03-2022 11:26-0400 Heart rate 86 /min Cristino Crain DO Work Phone: [facility] 06-03-2022 11:26-0400 SaO2% (BldA) [Mass fraction] 97 % Cristino Crain DO Work Phone: [facility] 06-03-2022 11:26-0400 Systolic blood pressure 100 mm[Hg] Cristino Crain DO Work Phone: [facility] 01-31-2020 00:23-0400 Body surface area Derived from formula [facility] ([place]) Encounters Encounter Date Encounter Type Care Provider Facility Start: 08-29-2022 End: 08-29-2022 ambulatory CRISTINO CRAIN Facility:[facility] Procedures Date Procedure Procedure Detail Performing Clinician Start: 06-25-2022 Ct angiography head w/contrast/noncontrast Laceyzaina Crain DO Work Phone: Plan of Treatment Date Care Activity Detail Author Start: 04-13-2024 Urine microalbumin profile DTAP,TDAP,TD (7 - Td or Tdap) [facility] Start: 08-31-2022 DEPRESSION ASSESSMENT DEPRESSION ASSESSMENT [facility] Start: 05-01-2022 Influenza vaccination INFLUENZA (#1) [facility] Start: 08-31-2021 DEPRESSION ASSESSMENT DEPRESSION ASSESSMENT [facility] Start: 07-19-2021 COVID-19 VACCINE (3 - Booster for Moderna series) COVID-19 VACCINE (3 - Booster for Moderna series) [facility] Start: 12-06-2019 CHLAMYDIA SCREENING (18-24) CHLAMYDIA SCREENING (18-24) [facility] Start: 12-06-2019 GC (GONORRHEA) SCREENING (18-24) GC (GONORRHEA) SCREENING (18-24) [facility] Start: 12-06-2019 HEPATITIS C SCREENING HEPATITIS C SCREENING [facility] Start: 12-06-2019 HIV SCREENING HIV SCREENING [facility] Start: 12-06-2015 PEDS TO ADULT TRANSITION ANNUAL ASSESSMENT PEDS TO ADULT TRANSITION ANNUAL ASSESSMENT [facility] Start: 2013 PEDS TO ADULT TRANSITION INITIAL DISCUSSION PEDS TO ADULT TRANSITION INITIAL DISCUSSION [facility] Start: 12-06-2011 MENINGOCOCCAL B: Consider based on risk (1 of 2 - Risk Bexsero 2-dose series) MENINGOCOCCAL B: Consider based on risk (1 of 2 - Risk Bexsero 2-dose series) [facility] Start: 06-06-2002 COVID-19 VACCINE (#1) COVID-19 VACCINE (#1) [facility] End: 07-03-2023 CTA HEAD W IVCON CTA HEAD W IVCON Radiology Routine TIA (transient ischemic attack) Seizure disorder (HCC) 1 Occurrences starting 06/03/2022 until 07/03/2023 [facility] Work Phone: Immunizations Immunization Date Immunization Notes Care Provider Rachelle silva 09-25-2015 Human Papillomavirus 9-valent vaccine Lacey Breann DO Work Phone: [facility] 09-25-2015 influenza, live, intranasal, quadrivalent [facility] 04-16-2015 human papilloma viru s vaccine, quadrivalent [facility] 07-20-2014 influenza, live, intranasal, quadrivalent Cristino Breann DO Work Phone: [facility] 04-13-2014 meningococcal polysaccharide (groups A, C, Y and W-135) diphtheria toxoid conjugate vaccine (MCV4P) [facility] Work Phone: [facility] 04-13-2014 tetanus toxoid, redu binh diphtheria toxoid, and acellular pertussis vaccine, adsorbed [facility] Work Phone: [facility] 06-11-2013 influenza virus vacc ine, live, attenuated, for intranasal use Cristino Breann DO Work Phone: [facility] Work Phone: 07-08-2012 influenza virus vacc ine, live, attenuated, for intranasal use Lacey Breann DO Work Phone: [facility] 05-31-2011 influenza virus vacc ine, live, attenuated, for intranasal use Lacey Breann DO Work Phone: [facility] Work Phone: 06-02-2009 influenza virus vacc ine, live, attenuated, for intranasal use Cristino Breann DO Work Phone: [facility] Work Phone: 08-11-2007 influenza virus vacc ine, live, attenuated, for intranasal use Lacey Breann DO Work Phone: [facility] Work Phone: 10-20-2006 diphtheria, tetanus toxoids and acellular pertussis vaccine Cristino Breann DO Work Phone: [facility] Work Phone: 10-20-2006 measles, mumps, rube lla, and varicella virus vaccine Lacey Breann DO Work Phone: [facility] Work Phone: 10-20-2006 poliovirus vaccine, inactivated Lacey Breann DO Work Phone: [facility] Work Phone: 07-17-2003 influenza virus vacc ine, unspecified formulation Lacey Breann DO Work Phone: [facility] Work Phone: 06-22-2003 influenza virus vacc ine, unspecified formulation Cristino Breann DO Work Phone: [facility] Work Phone: 03-08-2003 diphtheria, tetanus toxoids and acellular pertussis vaccine Cristino Breann DO Work Phone: [facility] Work Phone: 03-08-2003 pneumococcal conjuga te vaccine, 7 valent [facility] Work Phone: [facility] Work Phone: 03-08-2003 varicella virus vaccine Free [facility] DO Work Phone: [facility] Work Phone: 12-07-2002 haemophilus influenz ae type b vaccine, HbOC conjugate [facility] DO Work Phone: [facility] Work Phone: 12-07-2002 measles, mumps and rubella virus vaccine [facility] Work Phone: [facility] Work Phone: 09-07-2002 hepatitis B vaccine, pediatric or pediatric/adolescent dosage [facility] DO Work Phone: [facility] Work Phone: 09-07-2002 pneumococcal conjuga te vaccine, 7 valent [facility] Work Phone: [facility] Work Phone: 06-06-2002 diphtheria, tetanus toxoids and acellular pertussis vaccine [facility] Work Phone: [facility] Work Phone: 06-06-2002 haemophilus influenz ae type b vaccine, HbOC conjugate [facility] DO Work Phone: [facility] Work Phone: 06-06-2002 pneumococcal conjuga te vaccine, 7 valent [facility] Work Phone: [facility] Work Phone: 06-06-2002 poliovirus vaccine, inactivated [facility] DO Work Phone: [facility] Work Phone: 04-06-2002 diphtheria, tetanus toxoids and acellular pertussis vaccine [facility] Work Phone: [facility] Work Phone: 04-06-2002 haemophilus influenz ae type b vaccine, HbOC conjugate [facility] Work Phone: [facility] Work Phone: 04-06-2002 poliovirus vaccine, inactivated Cristino Breann DO Work Phone: [facility] Work Phone: 02-09-2002 diphtheria, tetanus toxoids and acellular pertussis vaccine [facility] Work Phone: [facility] Work Phone: 02-09-2002 haemophilus influenz ae type b vaccine, HbOC conjugate [facility] Work Phone: [facility] Work Phone: 02-09-2002 pneumococcal conjuga te vaccine, 7 valent [facility] DO Work Phone: [facility] Work Phone: 02-09-2002 poliovirus vaccine, inactivated Cristino Breann DO Work Phone: [facility] Work Phone: 01-06-2002 hepatitis B vaccine, pediatric or pediatric/adolescent dosage Lacey Breann DO Work Phone: [facility] Work Phone: 2001 hepatitis B vaccine, pediatric or pediatric/adolescent dosage Lacey Breann DO Work Phone: [facility] Work Phone: Payers Date Payer Category Payer [employer] [id number] 2021 [employer] [id number] 2021 Unknown [id number] Social History Date Type Detail Facility Start: 12-03-2017 End: 07-04-2022 Tobacco smoking status HIIS Never smoked tobacco [facility] Work Phone: History of tobacco use Passive smoker [facility] Work Phone: Start: 12-03-2017 Tobacco use and exposure User of smokeless tobacco [facility] Work Phone: History of tobacco use Chews Tobacco [facility] Work Phone: Start: 09-29-2019 Alcohol intake Not Asked [facility] Start: 2001 Sex Assigned At Not on file C [facility] Start: 05-24-2022 End: 06-05-2022 Exposure to SARS-CoV-2 (event) Not sure [facility] Start: 07-04-2022 Tobacco use and exposure Smokeless tobacco non-user [facility] Start: 07-04-2022 End: 08-18-2022 Alcohol intake Ex-drinker (finding) [facility] Clinical Notes 06-03-2022 to 08-29-2022 Sheeba Morgan MD - 08/29/2022 2:57 PM ESTSheeba Morgan MD - 07/04/2022 3:05 PM EDTTelephone Encounter - Karissa Draper LPN - 07/03/2022 10:16 AM EDTAngela Vale RN - 06/25/2022 11:00 AM EDT Note Date & Type Note Facility 08-29-2022 Note HNO ID: [id number] Author: Sheeba Morgan MD Service: ? Author Type: Physician Type: Progress Notes Filed: 08/29/2022 3:11 PM Note Text: [facility] Follow Up / Established [...] with the patient on August 18 via [employer] and told her to stop taking her [...] DATE OF EXAM: Aug 18 2022 9:39AM [facility] 0336 - MRV BRAIN WO/W IVCON / PROCEDURE REASON: Cerebral venous sinus thrombosis * * * * Physician Interpretation * * * * EXAMINATION: MRV BRAIN WO/W IVCON HISTORY: Cerebral venous sinus thrombosis TECHNIQUE: Intracranial 2-D qktm-lp-runiva and post gadolinium 3-D MR venography. Contrast: [...] intracranial MRV. No dural venous sinus thrombosis. [employer]: CAMERON Transcribe Date/Time: Aug 18 2022 9:56A Dictated by : STEFANIE WALSH DO This examination was interpreted and the report reviewed and electronically signed by: STEFANIE WALSH DO on Aug 18 2022 10:03AM EST Assessment/Plan: Chart, labs,and relevant images reviewed. (more content not included)... [facility] 08-29-2022 History of Presen t illness Narrative Images from the original note were not included. [facility] Follow Up / Established [...] with the patient on August 18 via [employer] and told her to stop taking her [...] DATE OF EXAM: Aug 18 2022 9:39AM [facility] 0336 - MRV BRAIN WO/W IVCON / PROCEDURE REASON: Cerebral venous sinus thrombosis * * * * Physician Interpretation * * * * EXAMINATION: MRV BRAIN WO/W IVCON HISTORY: Cerebral venous sinus thrombosis TECHNIQUE: Intracranial 2-D lidz-bu-mingzj and post gadolinium 3-D MR venography. Contrast: [...] intracranial MRV. No dural venous sinus thrombosis. [employer]: CAMERON Transcribe Date/Time: Aug 18 2022 9:56A [...] as needed This note was dictated using Profusa speech recognition software and may contain some [...] which included preparing to see the patient, [id number] patient care, completing clinical documentation, obtaining and/or reviewing separately obtained history, performing a medically appropriate examination, counseling and educating the patient/family/caregiver and ordering medications, tests, or procedures. . Sheeba Morgan MD documented in this encounter [facility] 08-18-2022 Note HNO ID: [id number] Author: RT Chinyere(R) Service: Radiology Author Type: Veterinary Assistant Type: Progress Notes Filed: 08/18/2022 9:26 AM [...] RT Chinyere(R) August 18, 2022 9:25 AM [facility] 08-18-2022 Note HNO ID: [id number] Author: Joelle Roach RN Service: Nursing Author [...] DATE: August 18, 2022 TIME: 8:58 AM [facility] 07-14-2022 Note HNO ID: [id number] Author: Jen Jiménez, dairy grazer Service: ? Author Type: Veterinary Assistant Type: Progress Notes Filed: 07/14/2022 1:29 PM [...] Not applicable SIGNED BY: Jen JIMÉNEZ RT, dairy grazer July 14, 2022 1:21 PM [facility] 07-04-2022 Note HNO ID: [id number] Author: Sheeba Morgan MD Service: ? Author Type: Physician Type: Progress Notes Filed: 07/07/2022 8:44 AM Note Text: [facility] Name: Ernestina Delong [...] ambulance was called. She was taken to [facility]. She had an MR head with [...] Normal routine EE (more content not included)... [facility] 07-04-2022 History of Presen t illness Narrative Images from the original note were not included. [facility] Name: Ernestina Delong [...] ambulance was called. She was taken to [facility]. She had an MR head with [...] (around 08/08/2022). This note was dictated using [employer] speech recognition software and may contain some [...] 06/22/2022 Score 3 documented in this encounter [facility] 07-03-2022 Miscellaneous Notes Left message to call, also on message said sent a [employer] message and can reply that way as well. Advised to call back or respond by [employer] which ever she prefers. Shows last log into [employer] 06/29/22. Will send erentohart message, ----- Message from Cristino Crain DO sent at 06/30/2022 3:18 PM EDT ----- Ct eeg ok how doing> documented in this encounter [facility] 06-25-2022 Note HNO ID: [id number] Author: RT Salo(R) Service: Radiology Author Type: [...] RT Salo(R) June 25, 2022 10:52 AM [facility] 06-25-2022 Note HNO ID: [id number] Author: Angela Vale RN Service: Radiology Author [...] DATE: June 25, 2022 TIME: 10:26 AM [facility] 06-25-2022 History of Presen t illness Narrative [...] 2022 10:52 AM documented in this encounter [facility] 06-05-2022 Miscellaneous Notes Addended by: CRISTINO CRAIN on: 06/05/2022 02:08 PM Modules accepted: Orders senr Pt and her mom called in. At her appointment they forgot to request a refill on her Eliquis 5 Mg twice a day to [facility] in [facility]. documented in this encounter [facility] 06-04-2022 Miscellaneous Notes Kamila Temple from [facility] called into the office. She stated the Pt's insurance requires a referral but it cannot be submitted. It needs to be submitted by PCP. Kamila [phone] Ext [phone] documented in this encounter [facility] 06-03-2022 Note HNO ID: [id number] Author: Cristino Crain, Service: ? Author Type: Physician Type: Progress Notes Filed: 06/07/2022 6:17 PM Note Text: [facility] Nhung Crain DO [address] [place] [address] Date of Evaluation: 06/03/2022 Patient Name: Ernestina [...] (FLONASE) 50 mcg/actuation nasal spray Use 1 Quincy in each nostril daily at bedtime. (Patient [...] are moist. P (more content not included)... [facility] 06-03-2022 Miscellaneous Notes Confirmation number: [id number] documented in this encounter [facility] 06-03-2022 History of Presen t illness Narrative Images from the original note were not included. [facility] [address] [place] [address] Date of Evaluation: 06/03/2022 Patient Name: Ernestina [...] (FLONASE) 50 mcg/actuation nasal spray Use 1 Quincy in each nostril daily at bedtime. (Patient [...] 2022 12:04 PM. 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 [facility] Diagnosis Migraine with aura and without status migrainosus, not intractable- Primary Migraine with aura, without mention of intractable migraine without mention of status migrainosus documented in this encounter [facility] Summary Purpose Family History No Family History Records FoundNo Family History Records FoundNo Family History Records Found Advance Directives No Advanced Directives Records FoundNo Advanced Directives Records FoundNo Advanced Directives Records Found Reason for Referral Specialty Diagnoses / Procedures Referred By Contac t Referred To Contact NEUROLOGY Diagnoses TIA (transient ischemic attack) Seizure disorder (HCC) Procedures CONSULT TO NEUROLOGY OFFICE/OUTPATIENT [facility] 60-74 MINUTES Breann [facility], [place] [address] Neur Ag [facility] [address] [facility] [address] [place] [address] Referral ID Status Reason Start Date Expiration Date Visits Requested Visits Authorized [id number] Waiting for Response PCP Requested Referral 06/03/2022 06/03/2023 1 1 Specialty Diagnoses / Procedures Referred By Contac t Referred To Contact [facility] Diagnoses TIA (transient ischemic attack) Seizure disorder (HCC) Procedures CTA HEAD W IVCON CT ANGIOGRAPHY HEAD W/CONTRAST/NONCONTRAST Breann [facility], [place] [address] Scan [facility] [address] [place] [address] Referral ID Status Reason Start Date Expiration Date Visits Requested Visits Authorized [id number] Authorized Auto-Generat ed Referral 06/03/2022 07/03/2023 1 1 Specialty Diagnoses / Procedures Referred By Contac t Referred To Contact NEUROLOGY Diagnoses TIA (transient ischemic attack) Seizure disorder (HCC) Procedures EPIL EEG ROUTINE ELECTROENCEPHALOGRAM REC COMA/SLEEP ONLY Cristino Crain DO [address] [place] [address] Neur Ag [facility] [address] [place] [address] Referral ID Status Reason Start Date Expiration Date Visits Requested Visits Authorized [id number] Waiting for Response Auto-Generat ed Referral 06/03/2022 06/03/2023 1 1 Referral ID Status Reason Start Date Expiration Date V isits Requested Visits Authorized [id number] Closed Auto-Generate d Referral 06/03/2022 07/03/2023 1 1 Specialty Diagnoses / Procedures Referred By Amy oconnell Referred To Contact MR IMAGING Diagnoses Cerebral venous sinus thrombosis Procedures MRI BRAIN WO IVCON MRI BRAIN BRAIN STEM W/O CONTRAST MATERIAL Sheeba Morgan MD [address] [place] [address] Mr Imaging Referral ID Status Reason Start Date Expiration Date Visits Requested Visits Authorized [id number] Pending Review Auto-Generat ed Referral 07/04/2022 08/03/2023 1 1 Additional Source Comments INFORMATION SOURCE (unrecogn ized section and content) DATE CREATED AUTHOR AUTHOR'S ORGANIZ ATION 07/24/2022 [facility] DATE CREATED AUTHOR AUTHOR'S ORGANIZ ATION 08/30/2022 [facility] Source Comments (unrecognize d section and content) In the event this informatio n is protected by the Federal Confidentiality of Alcohol and Drug Abuse Patient Records regulations: The Federal rules restrict any use of the information to criminally investigate or prosecute any alcohol or drug abuse patient.[facility] the event this information is protected by the Federal Confidentiality of Alcohol and Drug Abuse Patient Records regulations: The Federal rules restrict any use of the information to criminally investigate or prosecute any alcohol or drug abuse patient.[facility] the event this information is protected by the Federal Confidentiality of Alcohol and Drug Abuse Patient Records regulations: The Federal rules restrict any use of the information to criminally investigate or prosecute any alcohol or drug abuse patient.[facility] the event this information is protected by the Federal Confidentiality of Alcohol and Drug Abuse Patient Records regulations: The Federal rules restrict any use of the information to criminally investigate or prosecute any alcohol or drug abuse patient.[facility] the event this information is protected by the Federal Confidentiality of Alcohol and Drug Abuse Patient Records regulations: The Federal rules restrict any use of the information to criminally investigate or prosecute any alcohol or drug abuse patient.[facility] the event this information is protected by the Federal Confidentiality of Alcohol and Drug Abuse Patient Records regulations: The Federal rules restrict any use of the information to criminally investigate or prosecute any alcohol or drug abuse patient.[facility] CenterIn the event this information is protected by the Federal Confidentiality of Alcohol and Drug Abuse Patient Records regulations: The Federal rules restrict any use of the information to criminally investigate or prosecute any alcohol or drug abuse patient.[facility] CenterIn the event this information is protected by the Federal Confidentiality of Alcohol and Drug Abuse Patient Records regulations: The Federal rules restrict any use of the information to criminally investigate or prosecute any alcohol or drug abuse patient.[facility] Reason for Visit (unrecogniz ed section and [...] stroke, and wellness check Procedures OFFICE/OUTPATIENT NEW [facility] MDM 60-74 MINUTES 4C NEW [facility] Stephania Crainland Orlin, DO [address] [place] [address] Referral ID Status Reason Start Date Expiration Date V isits Requested Visits Authorized [id number] Closed Clearance Not Met -Financial Clearance Bypassed 06/03/2022 09/01/2022 [address] Specialty Diagnoses / Procedures Referred By Contac t Referred To Contact RADIO [facility] Diagnoses TIA (transient ischemic attack) Seizure disorder (HCC) Procedures CTA HEAD W IVCON CT ANGIOGRAPHY HEAD W/CONTRAST/NONCONTRAST Cristino Crain, DO [address] [place] [address] Scan [facility] [address] [place] [address] Referral ID Status Reason Start Date Expiration Date V isits Requested Visits Authorized [id number] Closed Auto-Generate d Referral 06/03/2022 07/03/2023 1 1 Reason Comments New Patient Specialty Diagnoses / Procedures Referred By Contac t Referred To Contact Neurology / ADULT NEUROLOGY Diagnoses TIA (transient ischemic attack) Seizure (HCC) TIA,Seizure Procedures OFFICE/OUTPATIENT NEW [facility] MDM 15-29 MINUTES OFFICE/OUTPATIENT NEW HIGH MDM 60-74 MINUTES NEW [facility] Sheeba Morgan MD [address] [place] [address] Sheeba Morgan MD [address] [id number] Referral ID Status Reason Start Date Expiration Date Visits Re quested Visits Authorized [id number] Closed 06/26/2022 08/30/2022 1 1 Reason Comments Results Reason Comments Hide Curer - Other Referral/Insura nce Reason Comments Follow Up Specialty Diagnoses / Procedures Referred By Contac t Referred To Contact MR IMAGING Diagnoses Cerebral venous sinus thrombosis Procedures MRV BRAIN WO/W IVCON MRA; HEAD W & WO CONTRAST Analy Sanchez PA-C [address] [place] [id number] Mr Imaging Referral ID Status Reason Start Date Expiration Date Visits Requested Visits Authorized [id number] Authorized Auto-Generate d Referral Financial Clearance Required - Self Pay Patient Cleared - Qualified 100% FAS 2 10/16/2022 99 99 Care Teams (unrecognized sec tion and content) Branch Account Executive Relationship Specialty Start Date End Date Cristino Crain, [address] [address] PCP - General Family Medicine 06/03/22 Branch Account Executive Relationship Specialty Start Date End Date Cristino Crain, [address] [address] PCP - General Family Medicine 06/03/22 Branch Account Executive Relationship Specialty Start Date End Date Cristino Crain [address] [address] PCP - General Family Medicine 06/03/22 Branch Account Executive Relationship Specialty Start Date End Date Cristino Crain, [address] [address] PCP - General Family Medicine 06/03/22 Branch Account Executive Relationship Specialty Start Date End Date Cristino Crain, [address] [address] PCP - General Family Medicine 06/03/22 Branch Account Executive Relationship Specialty Start Date End Date Cristino Crain[address] [address] PCP - General Family Medicine 06/03/22 Branch Account Executive Relationship Specialty Start Date End Date Cristino Crani[address] [address] PCP - General Family Medicine 06/03/22 FOR [...] BE BASED ON THE PRIMARY CLINICAL RECORDS. [facility], [facility]. provides no warranty or guarantee of the accuracy or completeness of information in this document.
[2023-09-05] MEDS: Lactated Ringers 1,000 ML 50 ML IV (21:00)
[2023-09-05 21:19] LABS: Absolute Lymphocyte Count 2.21 X10^3/uL (0.83-4.51); Absolute Neutrophil Count 13.6 X10^3/uL (2.0-7.7); Basophil# 0.05 X10^3/uL; Basophil% 0.3 % (0-1); Eosinophil# 0.11 X10^3/uL; Eosinophils% 0.6 % (0-5); Hematocrit 34.2 % (37-47); Hemoglobin 10.8 g/dL (12.0-15.0); Lymphocyte # 2.21 X10^3/ul (0.83-4.51); Lymphocyte % 12.8 % (19-41); Mean Corp Hgb Conc 31.6 g/dL (32-36); Mean Corpuscular Hgb 25.9 pg (27.0-32.0); Mean Platelet Vol. 10.9 fl (6.2-12.0); Monocyte# 1.16 X10^3/uL; Monocyte% 6.7 % (0-10); NRBC Flagged by Analyzer 0 % (0-5); Neutrophil # 13.59 X10^3/uL (2.7-7.7); Neutrophil % 78.6 % (47-70); Platelet Count 127 K/mm3 (150-450); RBC Distribution Width CV 13.5 % (11.6-14.6); RBC Distribution Width SD 39.9 fl (35.1-43.9); Red Blood Count 4.17 M/mm3 (4.2-5.4); White Blood Count 17.3 K/mm3 (4.4-11.0)
[2023-09-05 21:56] LABS: Syphilis Antibodies Non-reactive
[2023-09-05] MEDS: LACTATED RINGERS 500 ML 999 ML IV (22:50)
[2023-09-05] MEDS: fentaNYL-bupivacaine (epidural) 100 ML BAG EPIDURAL (23:30)
[2023-09-06] VITALS (54 sets, daily range): BP systolic 97–149; BP diastolic 48–91; PULSE 71–120; RESP 16; TEMP 36.3–37.5; O2SAT 89–99
--- NOTE | 2023-09-06 01:06 | PCM.PN.BLA ---
Progress Note comfortable with epidural current tracing: FHT: 125 Moderate variability reactive no decelerations category I tracing [place]: 4-5 minutes Contractions Membranes: AROM for clear fluid SVE:5/90/-1 A/P: Continue with position changes Plan to start and Titrate pitocin per protocol if no cervical change in 3 hours Epidural per anesthesia Anticipate Dr Chong aware of above assessment and agrees with plan of care Assessment & Plan Assessment/Plan (1) Active labor: (2) Uterine size-date discrepancy, third trimester: (3) Family history of autism in sibling: (4) Supervision of high-risk : (5) : QUALIFIERS: Weeks of gestation: 39 weeks Qualified Code(s): Z3A.39 - 39 weeks gestation of (6) Migraine: Multi Select Codes Urinary/Genital Urinary/Genital CPT Codes: No Charge
[2023-09-06] MEDS: Lactated Ringers 1,000 ML 200 ML IV ×2 (02:33→07:40)
[2023-09-06] MEDS: fentaNYL-bupivacaine (epidural) 100 ML BAG EPIDURAL ×2 (03:39→08:40)
--- NOTE | 2023-09-06 04:20 | PN_ITS ---
Progress Note comfortable with epidural current tracing: FHT: 120 Moderate variability reactive no decelerations category I tracing [place]: 4-5 minutes Contractions Membranes:ruptured remain clear SVE:7/90/-1 A/P: Continue with position changes start pitocin/Titrate pitocin per protocol Epidural per anesthesia Anticipate Dr Chong aware of above assessment and agrees with plan of care Assessment & Plan Assessment/Plan (1) Thrombocytopenia affecting : (2) Active labor: (3) Uterine size-date discrepancy, third trimester: (4) Family history of autism in sibling: (5) Supervision of high-risk : (6) : QUALIFIERS: Weeks of gestation: 39 weeks Qualified Code(s): Z3A.39 - 39 weeks gestation of (7) Migraine: Multi Select Codes Urinary/Genital Urinary/Genital CPT Codes: No Charge
[2023-09-06] MEDS: Oxytocin 15 Units/NS 250ml 15 UNITS/250 ML IV.SOLN 2 UNITS IV (05:39)
--- NOTE | 2023-09-06 06:48 | PCM.PN.BLA ---
Progress Note comfortable with epidural current tracing: FHT: 140 Moderate variability reactive no decelerations category I tracing [place]: 2-3 Contractions Membranes: ruptured for clear SVE:/0 A/P: Continue with position changes Titrate pitocin per protocol Epidural per anesthesia Anticipate Dr Chong aware of above assessment and agrees with plan of care Assessment & Plan Assessment/Plan (1) Thrombocytopenia affecting : (2) Active labor: (3) Uterine size-date discrepancy, third trimester: (4) Family history of autism in sibling: (5) Supervision of high-risk : (6) : QUALIFIERS: Weeks of gestation: 39 weeks Qualified Code(s): Z3A.39 - 39 weeks gestation of (7) Migraine: Multi Select Codes Urinary/Genital Urinary/Genital CPT Codes: No Charge
[2023-09-06] MEDS: Acetaminophen 500 MG Tablet PO (08:14)
--- NOTE | 2023-09-06 10:13 | OP.PCM_ITS ---
Assessment & Plan (1) Vaginal delivery: COMMENT: KW 39.2 IAL girl Taisha (2) Thrombocytopenia affecting : COMMENT: at onset of labor (3) Active labor: (4) Uterine size-date discrepancy, third trimester: COMMENT: US ordered (5) Family history of autism in sibling: (6) Supervision of high-risk : COMMENT: [id number], FLORENTINO 09/11/23 girl secret Osei (7) : QUALIFIERS: Weeks of gestation: 39 weeks Qualified Code(s): Z3A.39 - 39 weeks gestation of COMMENT: GBS neg, NIPT low risk, carrier neg. . declined ntd screen. (8) Migraine: COMMENT: was on blood thinners for severe complex migraine. was smoking and on ocps. the mri and ct were negative here but states that was sent to [place] and they gave her blood thinners for 2 months. will need records to know if needs to be on lovenox. Maternal Data Information FLORENTINO Calculator Estimated Delivery Date Method Current WG Current Estimate 09/11/23 LMP (Certain) 39w 2d Final FLORENTINO: 09/11/23 Final FLORENTINO Source: US >20 weeks Gestational age: 39.2 Vaginal Delivery Maternal Presentation Maternal Presentation: Active Labor Maternal Presentation: Progressed well to 10cm dilated and made steady progress with effective maternal pushing. Delivered the head in SUZY presentation. The head was delivered atraumatically and no nuchal cord was identified. The anterior and posterior shoulders delivered without complication followed by the rest of the and the was placed on the maternal abdomen. Delayed cord clamping was employed for approximately 5 minutes. Cord was clamped and cut and gentle traction was applied to the cord and the placenta delivered spontaneously. Immediately following, it was noted to be intact with a 3 vessel cord. The perineum and vagina were inspected and noted to have a small perineal abrasion which is not bleeding and was not repaired and small bilateral lacerations which were repaired with one interrupting stitch each. EBL was 150cc. Patient and tolerated delivery well. Apgars 9/9. Dr Chong notified of vaginal delivery and orders reviewed. Physician agrees with current plan of care. 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: Gracie Rivera Type of Anesthesia: Epidural Estimated Blood Loss: 150 Time of Delivery: 09:40 Findings Presentation: SUYZ Amniotic Membrane Rupture Type: Artificial Amniotic Fluid Description: Clear Placental Delivery Description: Spontaneous Placenta Disposition: [facility] Cord Vessel Description: 3 Vessels Cord Entanglement: None A Gender: Female (1 minute): 9 (5 minute): 9 Delayed Cord Clamping: Yes Post Vaginal Delivery Medications Given After Delivery: IV Pitocin Episiotomy Description: None Laceration: Periurethral Extnsion/lac (bilateral labial ) Complication Complications: None Multi Select Codes Urinary/Genital Urinary/Genital CPT Codes: 01841 Vaginal Delivery [facility]
[2023-09-06] MEDS: Oxytocin 15 Units/NS 250ml 15 UNITS/250 ML IV.SOLN 83 UNITS IV (10:26)
[2023-09-06] MEDS: Ibuprofen 600 MG Tablet PO (10:59)
[2023-09-06] MEDS: Ondansetron 4 MG/2 ML Vial IV (12:45)
[2023-09-06] MEDS: 0.9% Saline Lock 10 ML Syringe IV (12:45)
--- NOTE | 2023-09-06 16:27 | NURSING ---
Left and right labial lacerations intact
[2023-09-07 03:53] VITALS: BP 119/70; PULSE 93; RESP 16
--- NOTE | 2023-09-07 08:46 | PCM.PN.OB ---
Subjective Subjective Patient doing well without complaints. Tolerating PO. Ambulating and voiding without difficulty. Feeding well. Denies chest pain, shortness of breath, calf pain/swelling, fevers, chills, lightheadedness. Objective Data Objective Data Vital Signs: Vital Signs Temp Pulse Resp BP Pulse Ox O2 Del Method 97.3 F L 93 16 119/70 97 Room Air 09/06/23 20:00 09/07/23 03:53 09/07/23 03:53 09/07/23 03:53 09/06/23 16:19 09/07/23 03:53 Oxygen Delivery Method Room Air Weight: 217 lb 13.067 oz Body Mass Index (BMI) 31.2 Intake & Output: Intake and Output for Last 24 Hours 09/05/23 09/06/23 09/07/23 23:59 23:59 23:59 Intake Total 500 / 500 2102.53 / 2102.53 Output Total 2150 / 2150 Balance 500 / 500 -47.47 / -47.47 Lab / Micro Data 09/05/23 21:00 Physical Exam Const alert and no apparent distress Neck full ROM Lymph Lymphatic: no lymphadenopathy noted Chest inspection of chest normal and inspection of breasts normal Nipple/Areola: nipples/areola normal Resp normal respiratory effort, normal air movement and no retractions Cardio regular rate and regular rhythm GI normal to inspection, nondistended, normoactive bowel sounds Uterus Palpation: uterus fundus firm; Negative for uterus tender Extremity normal to inspection, full ROM and no calf tenderness Skin no rashes or lesions noted Psych mental status grossly normal Assessment & Plan (1) Vaginal delivery: COMMENT: KW 39.2 IAL girl [place] PLAN: s/p PPD # 1 1. routine post delivery care 2. breast feeding- support given 3. rh positive 4. rubella immune 5. plans on d/c home today
[2023-09-07] MEDS: Ibuprofen 600 MG Tablet PO (08:54)
[2023-09-07 09:06] VITALS: BP 114/62; PULSE 87; RESP 16; TEMP 36.5
--- NOTE | 2023-09-07 12:52 | CASEMGMT ---
Social Work Assessment Labor and Delivery Unit Patient Address [address] [place] [address]: Phone number: [phone] Date of Referral: 09/06/22 Time of Referral:?[id number] Referred By: Gracie Rivera Date of Intervention: ??09/07/22 Time of Intervention:?1130 Reason for Referral:? anxiety and depression, was on zoloft and prozac Sw completed chart review and acknowledges social work consult. Sw presented to bedside, introduced self to mother of baby (MOB- Ernestina) and father of baby (FOB- Osei). Sw explained sw role during hospitalization and completed psychosocial assessment. History obtained from: medical records, MOB and FOB Household composition: Currently residing in the home is, MOB, FOB and now baby. Parents deny any housing concerns. Patient's parent/guardian status:? ?Parents state that growing up they lived really close to each other and always knew each other. Parents have been together for 6 years. MOB denies any issues with domestic violence or intimate partner violence. Medical History: ?PIPER is 22 year old female who is 1, para 0-now 1 following labor and delivery of . PIPER received routine care with [place]. PIPER presented to hospital and delivered baby on 09/06/23 at 39 weeks gestation. Baby girl, named Taisha, was born weighing 7lb 4oz and her apgars were 9 and 9 at one and five minutes of life respectfully. Baby will be followed by Dr. Osorio for pediatrics. Educational Status:? Both parents graduated from high school and deny any concerns with reading, learning or comprehension. PIPER obtained an associates degree. Financial Status: Both parents are gainfully employed outside of the home. 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 Supplies:?? Parents have obtained all necessary baby supplies, including: safe sleep space, clothes, diapers, wipes and a breast pump. Childcare/Caregiver(s):? PIPER states that she will be working 3 days out of the week, and the days that she works her mother will be able to provide childcare. Transportation:?? Both parents have their drivers license and reliable means of transportation. No barriers at this time. Programs/Agencies Involved: ???No linkage to community resources at this time. Children Services/Legal Issues:??? No history of involvement, no issues or concerns warranting a referral to be made at this time. Behavioral Health Issues: ??Mental Health History:??FOFlor denies mental health history. MOB states that she has been diagnosed with anxiety and depression. MOB states that she was not prescribed any medications during to help with her mental health. MOB acknowledges feeling overwhelmed and anxious at this time. MOB states that a lot of people have been in and out of the room today and she is anxious to get discharged. MOB stated that she is still learning breast feeding and does not feel as though she was fully prepared for that journey. Sw encouraged MOB to reconsider discharge and staying another night to help with her feeling overwhelmed and to continue to receive support. MOB stated that she would think about it, but is anxious just to go home. ? Substance Use History:?MOB denies substance use prior to and during . ? Family History:??Parents deny family history of significant mental health diagnoses and substance use. ??? Drug Screens: ?No urine screens observed in chart review. Family/Social Stressors:? Parents deny any stressors at this time. Support Systems: MOB states that both sets of grandparents are supportive. MOB states that her mom lives really close to them and will be able to come and help them whenever they need. MOB also stated that she is going to ask visitors to not come visit for a while while she continues to work on breast feeding and bonding with baby. Sw supported this decision. Depression/Shaken Baby/Safe Sleeping:? Sw educated MOB and FOB on signs and symptoms of baby blues and depression. Sw encouraged MOB to reconsider getting discharged today, explaining that another day admitted with help from nursing and staff may help calm her anxiety. MOB stated that she will think about it. Sw provided parents with literature on signs and symptoms of baby blues and depression/ anxiety, and explained to MOB that she is predisposed due to her mental health history. Sw educated parents on shaken baby prevention and ABCs of safe sleep. ASSESSMENT:? MOB and baby admitted following labor and delivery. MOB with mental health history positive for anxiety and depression and is aware of mood disorders to be on the lookout for. MOB states that FOB is a good support person for her and would be able to recognize if she were struggling. MOB states that FOB would know how to support her. MOB and FOB participated in psychosocial assessment. MOB observed holding baby and being attentive to her. Parents were talkative and appreciative of sw support. PLAN:? MOB and baby to be discharged when medically ready. ?No other services requested or indicated. Dexter Shepherd, DOCUMENT MANAGEMENT CONSULTANT, VIRTUALIZATION CONSULTANT
--- NOTE | 2023-09-07 12:57 | DCINST_ITS ---
Discharge Instructions Diet Discharge Diet: No restrictions Activity Discharge Activity: May Not Drive and May Shower May resume sexual activity in: 6 weeks Weight Bearing Status: Full weight bearing Dressing / Incision Call your doctor if your incision/area has: Sudden Increased Bleeding, Increased Pain/ Swelling and Foul Smelling Discharge Call your doctor if you observe: Fever of 101 or Higher, Numbness or Tingling, Change in Color, Inability to urinate, Inability to have a bowel movement, Using more than 1 pad per hour, Shortness of breath, Dizziness, Fainting spells, Chest pain, Calf discomfort and Uncontrolled pain Follow Up Care Please Follow Up With: Gracie Rivera CNM When: 6 weeks , please call office to make an appointment. Congratulations on the of your baby! Test Results: Test results from this visit will be discussed in further detail at your follow- up appointment, if applicable. Discharge Plan Admission Admit Date/Time: 09/05/23 20:43 Attending Provider: Gracie Rivera Primary Care Provider: Jonathan Marshall Instructions Patient Instructions: Kick Counts, ED False Labor, OB Triage: Return to Hospital or Notify Physician if you Experience: Discharge Orders/Prescriptions Prescriptions: No Action PNV-DHA 27 mg iron-1 mg -300 mg capsule 1 cap PO Referrals / Follow Up: Jonathan Marshall MD [Primary Care Provider] - Disposition Disposition (needs filled in before D/C Order can be placed): Home, Self Care
== END 2023-09-07 13:40 | disposition home or self-care (01) | DRG 806 ==
LOC: WPOUT 20:54 → WP 20:54
PROVIDERS: Admitting Provider Advanced Practice Midwife; PCP Family Medicine; Referring Provider Advanced Practice Midwife; Visit Provider Advanced Practice Midwife
DX: O26.843 Uterine size-date discrepancy, third trimester (principal); Z37.0 Single live birth; O99.12 Other diseases of the blood and blood-forming organs and certain disorders involving the immune mechanism complicating childbirth; D69.6 Thrombocytopenia, unspecified; O70.0 First degree perineal laceration during delivery; Z3A.39 39 weeks gestation of pregnancy; Z87.891 Personal history of nicotine dependence; Z81.8 Family history of other mental and behavioral disorders
CPT/HCPCS: 59025; 59050; 85025; 86780; 86850; 86900; 86901; 99221; J7120; A4216; G0378; J2405

== ENCOUNTER → 2024-02-11 | Outpatient (CLI) | payer BC, SELFPAY ==
[2024-02-11 15:43] LABS: Absolute Lymphocyte Count 1.99 X10^3/uL (0.83-4.51); Absolute Neutrophil Count 3.5 X10^3/uL (2.0-7.7); Basophil# 0.03 X10^3/uL; Basophil% 0.5 % (0-1); Eosinophil# 0.15 X10^3/uL; Eosinophils% 2.4 % (0-5); Hemoglobin 12.9 g/dL (12.0-15.0); Lymphocyte # 1.99 X10^3/ul (0.83-4.51); Lymphocyte % 31.7 % (19-41); Mean Corp Hgb Conc 31.5 g/dL (32-36); Mean Corpuscular Volume 82.5 fL (81-99); Mean Platelet Vol. 10.5 fl (6.2-12.0); Monocyte% 9.6 % (0-10); NRBC Flagged by Analyzer 0 % (0-5); Neutrophil # 3.48 X10^3/uL (2.7-7.7); Neutrophil % 55.5 % (47-70); Platelet Count 272 K/mm3 (150-450); RBC Distribution Width SD 44.8 fl (35.1-43.9); Red Blood Count 4.97 M/mm3 (4.2-5.4); White Blood Count 6.3 K/mm3 (4.4-11.0)
[2024-02-11 16:21] LABS: Thyroid Stim Hormone (TSH) 1.55 uIU/mL (0.358-3.74)
== END | disposition home or self-care (01) ==
PROVIDERS: PCP Family Medicine; Referring Provider Advanced Practice Midwife; Visit Provider Advanced Practice Midwife
DX: R53.83 Other fatigue (principal); Z12.4 Encounter for screening for malignant neoplasm of cervix
CPT/HCPCS: 36415; 84443; 85025; 88175; G0145

== ENCOUNTER → 2024-11-24 | Outpatient (CLI) | payer BC, SELFPAY ==
[2024-11-24 12:54] LABS: Absolute Lymphocyte Count 2.57 X10^3/uL (0.83-4.51); Absolute Neutrophil Count 4.6 X10^3/uL (2.0-7.7); Basophil# 0.04 X10^3/uL; Basophil% 0.5 % (0-1); Eosinophil# 0.21 X10^3/uL; Eosinophils% 2.7 % (0-5); Hematocrit 42.1 % (37-47); Hemoglobin 13.8 g/dL (12.0-15.0); Lymphocyte # 2.57 X10^3/ul (0.83-4.51); Lymphocyte % 32.5 % (19-41); Mean Corp Hgb Conc 32.8 g/dL (32-36); Mean Corpuscular Hgb 27.8 pg (27.0-32.0); Mean Corpuscular Volume 84.7 fL (81-99); Mean Platelet Vol. 10.5 fl (6.2-12.0); Monocyte# 0.48 X10^3/uL; Monocyte% 6.1 % (0-10); NRBC Flagged by Analyzer 0 % (0-5); Neutrophil # 4.58 X10^3/uL (2.7-7.7); Neutrophil % 57.8 % (47-70); Platelet Count 297 K/mm3 (150-450); RBC Distribution Width CV 13.2 % (11.6-14.6); RBC Distribution Width SD 40.5 fl (35.1-43.9); Red Blood Count 4.97 M/mm3 (4.2-5.4); White Blood Count 7.9 K/mm3 (4.4-11.0)
[2024-11-24 13:43] LABS: AST(SGOT) 24 U/L (<=31); Alanine Aminotransfer ALT/SGPT 19 U/L (<=34); Anion Gap 18 (5-15); BUN 7 mg/dL (4-19); BUN/Creat Ratio 10.9 RATIO (10-20); Calcium,Total 8.5 mg/dL (7.6-11.0); Carbon Dioxide 17.2 mmol/L (21.0-32.0); Chloride 105 mmol/L (98-108); Creatinine, Serum 0.66 mg/dL (0.70-1.20); EST Glomerular Filtration Rate 127 (>60); Glucose 91 mg/dL (70-99); Potassium 4.1 mmol/L (3.3-5.1); Sodium Level 140 mmol/L (133-145)
[2024-11-24 17:20] LABS: Hepatitis B Surface Antibody Nonreactive; Hepatitis B Surface Antigen Nonreactive (Nonreactive); Hepatitis C Antibody Nonreactive (Nonreactive)
[2024-11-26 05:07] LABS: Hepatitis B Core Ab Total Negative (Negative); QNTFERON TB Mitogen Value > 10.00 IU/mL (.); QNTFERON TB Nil Value 0.02 IU/mL (.); QNTFERON TB1+ Ag Value 0.01 IU/mL (.); QNTFERON TB2+ Ag Value 0.03 IU/mL (.); QNTIFERON TB Positive Criteria Negative (Negative)
== END | disposition home or self-care (01) ==
PROVIDERS: PCP Family Medicine
DX: L40.0 Psoriasis vulgaris (principal); Z79.899 Other long term (current) drug therapy; Z79.620 Long term (current) use of immunosuppressive biologic
CPT/HCPCS: 36415; 80048; 84450; 84460; 85025; 86480; 86704; 86706; 86803; 87340

== ENCOUNTER → 2025-04-13 | Outpatient (CLI) | payer BC, SELFPAY ==
[2025-04-17 06:07] LABS: Chlamydia By Nucleic Acid AMP Negative (Negative); Gonococcus By Nucleic Acid AMP Negative (Negative)
== END | disposition home or self-care (01) ==
PROVIDERS: PCP Family Medicine; Visit Provider Advanced Practice Midwife
DX: O09.90 Supervision of high risk pregnancy, unspecified, unspecified trimester (principal); Z3A.00 Weeks of gestation of pregnancy not specified
CPT/HCPCS: 87077; 87086; 87088; 87186; 87491; 87591

== ENCOUNTER → 2025-04-18 | Outpatient (CLI) | payer BC, SELFPAY ==
[2025-04-18 15:54] LABS: Hematocrit 43.4 % (37-47); Hemoglobin 14.7 g/dL (12.0-15.0); Immature Granulocytes Count 0.040 X10^3/uL (0.0-0.0); Mean Corp Hgb Conc 33.9 g/dL (32-36); Mean Corpuscular Volume 85.8 fL (81-99); Mean Platelet Vol. 10.8 fl (6.2-12.0); NRBC Flagged by Analyzer 0 % (0-5); Platelet Count 270 K/mm3 (150-450); RBC Distribution Width CV 12.9 % (11.6-14.6); RBC Distribution Width SD 39.9 fl (35.1-43.9); Red Blood Count 5.06 M/mm3 (4.2-5.4); White Blood Count 10.3 K/mm3 (4.4-11.0)
[2025-04-18 16:39] LABS: HIV Nonreactive (Nonreactive); Hepatitis B Surface Antigen Nonreactive (Nonreactive); Hepatitis C Antibody Nonreactive (Nonreactive); Syphilis Antibodies Nonreactive (Nonreactive)
== END | disposition home or self-care (01) ==
PROVIDERS: PCP Family Medicine; Referring Provider Advanced Practice Midwife; Visit Provider Advanced Practice Midwife
DX: O09.90 Supervision of high risk pregnancy, unspecified, unspecified trimester (principal); Z3A.00 Weeks of gestation of pregnancy not specified
CPT/HCPCS: 36415; 83036; 85025; 86703; 86762; 86780; 86803; 86850; 86900; 86901; 87340

== ENCOUNTER → 2025-08-22 | Outpatient (CLI) | payer BC, SELFPAY ==
[2025-08-22 12:19] LABS: Hematocrit 39.1 % (37-47); Hemoglobin 13.0 g/dL (12.0-15.0); Immature Granulocytes Count 0.140 X10^3/uL (0.0-0.0); Mean Corp Hgb Conc 33.2 g/dL (32-36); Mean Corpuscular Volume 90.9 fL (81-99); Mean Platelet Vol. 11.1 fl (6.2-12.0); NRBC Flagged by Analyzer 0 % (0-5); Platelet Count 202 K/mm3 (150-450); RBC Distribution Width CV 13.2 % (11.6-14.6); RBC Distribution Width SD 43.6 fl (35.1-43.9); Red Blood Count 4.30 M/mm3 (4.2-5.4); White Blood Count 11.9 K/mm3 (4.4-11.0)
[2025-08-22 13:14] LABS: Glucose Challenge Gest 1H 50g 104 mg/dL (70-140); HIV Nonreactive (Nonreactive); Syphilis Antibodies Nonreactive (Nonreactive)
== END | disposition home or self-care (01) ==
LOC: BWCLAB 08:26
PROVIDERS: Advanced Practice Midwife; PCP Family Medicine; Visit Provider Obstetrics & Gynecology
DX: O09.90 Supervision of high risk pregnancy, unspecified, unspecified trimester (principal); Z3A.00 Weeks of gestation of pregnancy not specified
CPT/HCPCS: 36415; 82950; 85025; 86703; 86780